=== PATIENT | female | born 1935 | race Caucasian/White ===

== ENCOUNTER → 2016-06-19 | Outpatient (CLI) | payer BC ==
[2016-06-19 08:29] LABS: APPEARANCE,URINE CLEAR; BILIRUBIN,URINE NEGATIVE (NEGATIVE); GLUCOSE, URINE NEGATIVE (NEGATIVE); KETONES,URINE NEGATIVE (NEGATIVE); LEUKOCYTE ESTERASE,URINE NEGATIVE (NEGATIVE); NITRITE,URINE NEGATIVE (NEGATIVE); PROTEIN,URINE NEGATIVE (NEGATIVE); URINE SPECIFIC GRAVITY 1.016; UROBILINOGEN,URINE NEGATIVE mg/dL (<2.0)
[2016-06-19 08:53] LABS: ANION GAP 13 (5-19); BLOOD UREA NITROGEN 23 mg/dL (7-20); CALCIUM 9.6 mg/dL (8.4-10.2); CARBON DIOXIDE 27 mmol/L (22-30); CHLORIDE 102 mmol/L (98-107); Direct HDL 57 mg/dL (>40); GLUCOSE 102 mg/dL (75-110); POTASSIUM 4.7 mmol/L (3.6-5.0); SODIUM 141.6 mmol/L (137-145); TRIGLYCERIDES 115 mg/dL (<150)
[2016-06-19 09:04] LABS: DIRECT LDL 34 mg/dL (<100)
[2016-06-20 11:39] LABS: CREATININE URINE 155.8 mg/dL (Not Estab.); MICROALBUMIN URINE 18.3 ug/mL (Not Estab.)
== END ==
LOC: OD 07:25
PROVIDERS: ATTEND Internal Medicine Nephrology
DX: N18.3 Chronic kidney disease, stage 3 (moderate) (principal); E78.2 Mixed hyperlipidemia
CPT/HCPCS: 36415; 80048; 80061; 81001; 82043; 82570

== ENCOUNTER → 2016-11-18 | Outpatient (CLI) | payer BC ==
[2016-11-18 08:42] LABS: ABSOLUTE BASOPHILS # (AUTO) 0.1 10^3/uL (0.0-0.2); ABSOLUTE EOSINOPHILS # (AUTO) 0.2 10^3/uL (0.0-0.6); ABSOLUTE MONOCYTES (AUTO) 0.4 10^3/uL (0.1-1.4); ABSOLUTE NEUT (AUTO) 3.4 10^3/uL (1.7-8.2); BASOPHILS % (AUTO) 1.1 % (0-2); EOSINOPHILS % (AUTO) 4.4 % (0-6); HEMATOCRIT 33.8 % (36.0-47.0); HEMOGLOBIN 11.3 g/dL (12.0-15.5); HGB HCT DIFFERENCE 0.1; LYMPHOCYTES % (AUTO) 20.4 % (13-45); MEAN CORPUSCULAR HEMOGLOBIN 31.3 pg (27.0-33.4); MEAN CORPUSCULAR HGB CONC 33.4 g/dL (32.0-36.0); MEAN CORPUSCULAR VOLUME 94 fl (80-97); MONOCYTES % (AUTO) 7.5 % (3-13); RED BLOOD COUNT 3.61 10^6/uL (3.72-5.28); RED CELL DISTRIBUTION WIDTH 13.5 % (11.5-14.0); SEGMENTED NEUTROPHILS % (AUTO) 66.6 % (42-78); WHITE BLOOD COUNT 5.1 10^3/uL (4.0-10.5)
[2016-11-18 09:14] LABS: ALBUMIN 4.4 g/dL (3.5-5.0); ANION GAP 11 (5-19); BLOOD UREA NITROGEN 27 mg/dL (7-20); CALCIUM 10.1 mg/dL (8.4-10.2); CARBON DIOXIDE 30 mmol/L (22-30); CHLORIDE 103 mmol/L (98-107); CREATININE RESULT 1.31 mg/dL (0.52-1.25); GLUCOSE 105 mg/dL (75-110); PHOSPHORUS 3.9 mg/dL (2.5-4.5); POTASSIUM 4.8 mmol/L (3.6-5.0); URIC ACID 6.4 mg/dL (2.5-7.5)
[2016-11-18 09:38] LABS: THYROID STIMULATING HORMONE 1.85 uIU/mL (0.47-4.68)
[2016-11-19 07:06] LABS: VITAMIN D 25-HYDROXY 60.4 ng/mL (30.0-100.0)
== END ==
LOC: OD 07:25
PROVIDERS: ATTEND Internal Medicine Nephrology
DX: N18.3 Chronic kidney disease, stage 3 (moderate) (principal); D64.9 Anemia, unspecified; M10.9 Gout, unspecified; E03.9 Hypothyroidism, unspecified; E55.9 Vitamin D deficiency, unspecified
CPT/HCPCS: 36415; 80048; 82040; 82306; 83970; 84100; 84439; 84443; 84550; 85025

== ENCOUNTER → 2017-05-21 | Outpatient (CLI) | payer BC ==
[2017-05-21 08:15] LABS: ABSOLUTE BASOPHILS # (AUTO) 0.1 10^3/uL (0.0-0.2); ABSOLUTE EOSINOPHILS # (AUTO) 0.5 10^3/uL (0.0-0.6); ABSOLUTE LYMPHOCYTES (AUTO) 1.2 10^3/uL (0.5-4.7); ABSOLUTE MONOCYTES (AUTO) 0.4 10^3/uL (0.1-1.4); ABSOLUTE NEUT (AUTO) 3.3 10^3/uL (1.7-8.2); BASOPHILS % (AUTO) 1.2 % (0-2); EOSINOPHILS % (AUTO) 9.5 % (0-6); HEMATOCRIT 34.8 % (36.0-47.0); HEMOGLOBIN 11.7 g/dL (12.0-15.5); LYMPHOCYTES % (AUTO) 21.6 % (13-45); MEAN CORPUSCULAR HEMOGLOBIN 30.9 pg (27.0-33.4); MEAN CORPUSCULAR HGB CONC 33.6 g/dL (32.0-36.0); MEAN CORPUSCULAR VOLUME 92 fl (80-97); MONOCYTES % (AUTO) 7.9 % (3-13); PLATELET COUNT 225 10^3/uL (150-450); RED BLOOD COUNT 3.78 10^6/uL (3.72-5.28); RED CELL DISTRIBUTION WIDTH 14.1 % (11.5-14.0); SEGMENTED NEUTROPHILS % (AUTO) 59.8 % (42-78); TOTAL CELLS COUNTED % (AUTO) 100 %; WHITE BLOOD COUNT 5.6 10^3/uL (4.0-10.5)
[2017-05-21 08:25] LABS: APPEARANCE,URINE SLIGHTLY-CLOUDY; BILIRUBIN,URINE NEGATIVE (NEGATIVE); COLOR,URINE YELLOW; GLUCOSE, URINE NEGATIVE (NEGATIVE); KETONES,URINE NEGATIVE (NEGATIVE); LEUKOCYTE ESTERASE,URINE NEGATIVE (NEGATIVE); NITRITE,URINE NEGATIVE (NEGATIVE); PROTEIN,URINE NEGATIVE (NEGATIVE); URINE SPECIFIC GRAVITY 1.015; UROBILINOGEN,URINE NEGATIVE mg/dL (<2.0)
[2017-05-21 08:32] LABS: ALANINE AMINOTRANSFERASE 24 U/L (9-52); ALBUMIN 4.6 g/dL (3.5-5.0); ALKALINE PHOSPHATASE 41 U/L (38-126); ANION GAP 15 (5-19); ASPARTATE AMINO TRANSFERASE 23 U/L (14-36); BILIRUBIN,DIRECT 0.2 mg/dL (0.0-0.4); BILIRUBIN,TOTAL 0.6 mg/dL (0.2-1.3); BLOOD UREA NITROGEN 29 mg/dL (7-20); CALCIUM 10.4 mg/dL (8.4-10.2); CARBON DIOXIDE 26 mmol/L (22-30); CHLORIDE 102 mmol/L (98-107); CHOLESTEROL 160.82 mg/dL (0-200); GLUCOSE 98 mg/dL (75-110); SODIUM 142.5 mmol/L (137-145); TOTAL PROTEIN 6.9 g/dL (6.3-8.2); TRIGLYCERIDES 143 mg/dL (<150)
[2017-05-21 08:43] LABS: DIRECT LDL 39 mg/dL (<100)
[2017-05-21 10:13] LABS: FREE T4 (FREE THYROXINE) 1.2 ng/dL (0.78-2.19)
[2017-05-21 10:27] LABS: THYROID STIMULATING HORMONE 1.93 uIU/mL (0.47-4.68)
[2017-05-22 12:38] LABS: CREATININE URINE 126.2 mg/dL (Not Estab.); MICROALBUMIN URINE 6.9 ug/mL (Not Estab.)
== END ==
LOC: OD 07:17
PROVIDERS: ATTEND Internal Medicine Nephrology
DX: N18.3 Chronic kidney disease, stage 3 (moderate) (principal); E03.9 Hypothyroidism, unspecified; E78.1 Pure hyperglyceridemia
CPT/HCPCS: 36415; 80053; 80061; 81001; 82043; 82570; 84439; 84443; 85025

== ENCOUNTER → 2017-06-16 | Outpatient (CLI) | payer BC ==
[2017-06-16 08:57] LABS: ANION GAP 10 (5-19); BLOOD UREA NITROGEN 44 mg/dL (7-20); CARBON DIOXIDE 27 mmol/L (22-30); CHLORIDE 103 mmol/L (98-107); GLUCOSE 106 mg/dL (75-110); POTASSIUM 5.7 mmol/L (3.6-5.0); SODIUM 139.8 mmol/L (137-145)
== END ==
LOC: OD 07:20
PROVIDERS: ATTEND Internal Medicine Nephrology
DX: N17.9 Acute kidney failure, unspecified (principal)
CPT/HCPCS: 36415; 80048

== ENCOUNTER → 2017-06-19 | Outpatient (CLI) | payer BC, MEDICARE ==
--- NOTE | 2017-06-19 09:22 | WOMENS IMAGING REPORT ---
EXAM DESCRIPTION: RETROPERITONEAL U/S COMPLETED DATE/TIME: 06/19/2017 7:43 am REASON FOR STUDY: ACUTE KIDNEY FAILURE N17.9 ACUTE KIDNEY FAILURE, UNSPECIFIED COMPARISON: None. TECHNIQUE: Dynamic and static grayscale images acquired of the kidneys and bladder and recorded on P ACS. Additional selected color Doppler and spectral images recorded. LIMITATIONS: None. FINDINGS: RIGHT KIDNEY: 9 cm in length, with mild diffuse cortical thinning and increased echogenic ity. No solid or suspicious masses. 2.2 cm right lower pole parapelvic cyst. No hydronephrosis. No calcifications. LEFT KIDNEY: 9.6 cm in length, with mild diffuse cortical thinning and increased echogenicity. No solid or suspicious masses. No hydronephrosis. No calcifications. BLADDER: No masses. Bilateral ureteral jets are identified OTHER FINDINGS: No other significant finding. IMPRESSION: No hydronephrosis. Bilateral renal cortical thinning and mild increased echogenicity from medical renal disease TECHNICAL DOCUMENTATION: JOB ID: [id number] [employer]- All Rights Reserved Reading location - IP/workstation name: [email or web address]
== END ==
LOC: WI 07:10
PROVIDERS: ATTEND Internal Medicine Nephrology
DX: N17.9 Acute kidney failure, unspecified (principal); E87.5 Hyperkalemia
CPT/HCPCS: 76770

== ENCOUNTER → 2017-06-20 | Outpatient (CLI) | payer BC, MEDICARE ==
[2017-06-20 14:22] LABS: ANION GAP 13 (5-19); BLOOD UREA NITROGEN 37 mg/dL (7-20); CALCIUM 10.3 mg/dL (8.4-10.2); CARBON DIOXIDE 29 mmol/L (22-30); CHLORIDE 100 mmol/L (98-107); GLUCOSE 109 mg/dL (75-110); POTASSIUM 4.4 mmol/L (3.6-5.0)
== END ==
LOC: OD 13:18
PROVIDERS: ATTEND Internal Medicine Nephrology
DX: N17.9 Acute kidney failure, unspecified (principal); E87.5 Hyperkalemia
CPT/HCPCS: 36415; 80048

== ENCOUNTER → 2017-07-14 | Outpatient (CLI) | payer BC, MEDICARE ==
[2017-07-14 08:33] LABS: ANION GAP 13 (5-19); BLOOD UREA NITROGEN 24 mg/dL (7-20); CALCIUM 9.7 mg/dL (8.4-10.2); CARBON DIOXIDE 26 mmol/L (22-30); CHLORIDE 104 mmol/L (98-107); GLUCOSE 100 mg/dL (75-110); SODIUM 142.8 mmol/L (137-145)
== END ==
LOC: OD 07:31
PROVIDERS: ATTEND Internal Medicine Nephrology
DX: N17.9 Acute kidney failure, unspecified (principal); E87.5 Hyperkalemia
CPT/HCPCS: 36415; 80048

== ENCOUNTER → 2017-09-11 | Outpatient (CLI) | payer BC, MEDICARE ==
[2017-09-11 07:53] LABS: ABSOLUTE EOSINOPHILS # (AUTO) 0.1 10^3/uL (0.0-0.6); ABSOLUTE LYMPHOCYTES (AUTO) 0.4 10^3/uL (0.5-4.7); ABSOLUTE MONOCYTES (AUTO) 0.3 10^3/uL (0.1-1.4); ABSOLUTE NEUT (AUTO) 2.2 10^3/uL (1.7-8.2); BASOPHILS % (AUTO) 1.5 % (0-2); EOSINOPHILS % (AUTO) 2.4 % (0-6); HEMATOCRIT 29.7 % (36.0-47.0); HEMOGLOBIN 10.1 g/dL (12.0-15.5); LYMPHOCYTES % (AUTO) 12.6 % (13-45); MEAN CORPUSCULAR HGB CONC 34.1 g/dL (32.0-36.0); MEAN CORPUSCULAR VOLUME 91 fl (80-97); MONOCYTES % (AUTO) 10.8 % (3-13); PLATELET COUNT 196 10^3/uL (150-450); RED BLOOD COUNT 3.27 10^6/uL (3.72-5.28); RED CELL DISTRIBUTION WIDTH 13.8 % (11.5-14.0); SEGMENTED NEUTROPHILS % (AUTO) 72.7 % (42-78); TOTAL CELLS COUNTED % (AUTO) 100 %
[2017-09-11 08:20] LABS: ANION GAP 11 (5-19); BLOOD UREA NITROGEN 29 mg/dL (7-20); CALCIUM 9.6 mg/dL (8.4-10.2); CARBON DIOXIDE 27 mmol/L (22-30); CHLORIDE 100 mmol/L (98-107); GLUCOSE 102 mg/dL (75-110); PHOSPHORUS 3.7 mg/dL (2.5-4.5); POTASSIUM 4.3 mmol/L (3.6-5.0); SODIUM 138.1 mmol/L (137-145)
[2017-09-11 08:54] LABS: APPEARANCE,URINE SLIGHTLY-CLOUDY; BILIRUBIN,URINE NEGATIVE (NEGATIVE); COLOR,URINE YELLOW; GLUCOSE, URINE NEGATIVE (NEGATIVE); KETONES,URINE NEGATIVE (NEGATIVE); LEUKOCYTE ESTERASE,URINE NEGATIVE (NEGATIVE); NITRITE,URINE NEGATIVE (NEGATIVE); PROTEIN,URINE NEGATIVE (NEGATIVE); UROBILINOGEN,URINE NEGATIVE mg/dL (<2.0)
[2017-09-12 09:39] LABS: CREATININE URINE 200.7 mg/dL (Not Estab.); MICROALBUMIN URINE 44.3 ug/mL (Not Estab.)
== END ==
LOC: OD 07:14
PROVIDERS: ATTEND Internal Medicine Nephrology
DX: N17.9 Acute kidney failure, unspecified (principal); I12.9 Hypertensive chronic kidney disease with stage 1 through stage 4 chronic kidney disease, or unspecified chronic kidney disease; N18.3 Chronic kidney disease, stage 3 (moderate); N28.89 Other specified disorders of kidney and ureter
CPT/HCPCS: 36415; 80048; 81001; 82040; 82043; 82088; 82306; 82533; 82570; 83835; 83970; 84100; 84244; 85025

== ENCOUNTER 2017-11-13 00:44 | Emergency (ER) | payer BC, MEDICARE ==
[2017-11-13 01:11] VITALS: BP 173/63
--- NOTE | 2017-11-13 01:55 | ER Document Report ---
ED GI/ - General Chief Complaint: Abdominal Pain >50 Stated Complaint: LOWER ABDOMINAL PAIN/DIARRHEA Time Seen by Provider: 11/13/17 01:34 TRAVEL OUTSIDE OF THE [place] IN LAST 30 DAYS: No - HPI Patient complains to provider of: Other - 82-year-old female with past medical history significant for renal insufficiency as well as hypertension that presents for evaluation of abdominal pain which began today. She notes that the pain is primarily in the right lower quadrant has been associated with loose bowel movements as well. She does endorse some nausea but denies any emesis, denies any fevers or chills, denies any dysuria. Her daughter notes that she did have an episode like this approximately 1 week prior without any obvious identified causes. She denies any significant past surgical history in the past. - Related Data Allergies/Adverse Reactions: No Known Allergies Allergy (Verified 11/17/17 13:53) Past Medical History - General Information source: Patient, Relative - Social History Smoking Status: Unknown if Ever Smoked Family History: None - Past Medical History Cardiac Medical History: Reports: Hx Hypertension - ON MEDS TOPROL Denies: Hx Coronary Artery Disease, Hx Heart Attack Pulmonary Medical History: Reports: Hx Pneumonia - Hx of, 1984 Denies: Hx Asthma, Hx Bronchitis, Hx COPD Neurological Medical History: Denies: Hx Cerebrovascular Accident, Hx Seizures GI Medical History: Denies: Hx Hepatitis, Hx Hiatal Hernia, Hx Ulcer Musculoskeletal Medical History: Reports Hx Arthritis - hips Infectious Medical History: Denies: Hx Hepatitis Past Surgical History: Denies: Hx Mastectomy, Hx Open Heart Surgery, Hx Pacemaker Review of Systems - Review of Systems -: Yes All other systems reviewed and negative Physical Exam - Vital signs Vitals: Temp Pulse Resp BP Pulse Ox 98.4 F 80 16 173/63 H 100 11/13/17 01:09 11/13/17 01:09 11/13/17 01:09 11/13/17 01:09 11/13/17 01:09 - General General appearance: Appears well In distress: None - HEENT Head: Normocephalic Eyes: Normal Conjunctiva: Normal Cornea: Normal Extraocular movements intact: Yes Eyelashes: Normal Pupils: PERRL - Respiratory Respiratory status: No respiratory distress Chest status: Nontender Breath sounds: Normal Chest palpation: Normal - Cardiovascular Rhythm: Regular Heart sounds: Normal auscultation Murmur: No - Abdominal Inspection: Normal Distension: No distension Tenderness: Tender - Tenderness in the right lower quadrant without any appreciable guarding or rebound Organomegaly: No organomegaly - Back Back: Normal - Extremities General upper extremity: Normal inspection, Nontender, Normal ROM, Normal strength General lower extremity: Normal inspection, Nontender, Normal ROM, Normal strength - Neurological Neuro grossly intact: Yes Cognition: Normal Orientation: AAOx4 Hina Coma Scale Eye Opening: Spontaneous Hudson Coma Scale Verbal: Oriented Hudson Coma Scale Motor: Obeys Commands Hudson Coma Scale Total: 15 Speech: Normal Cranial nerves: Normal Cerebellar coordination: Normal Motor strength normal: LUE, RUE, LLE, RLE - Psychological Associated symptoms: Normal affect Course - Re-evaluation Re-evalutation: 11/13/17 02:47 82-year-old female presents for evaluation of abdominal pain she developed today in the setting of also having diarrhea. She is got no significant past surgical history. On examination she looks in no obvious distress. Her abdominal examination is concerning for tenderness in the right lower quadrant. Given the concern for this patient developing a potential appendicitis colitis or other underlying more sinister abdominal pathology will plan for CT of the abdomen and pelvis. Her creatinine is elevated and her GFR is less than 30 therefore we will proceed with p.o. contrast no IV contrast. We will initiate fluids, patient does not demonstrate an obvious leukocytosis or an elevated lipase. She deferred any antinausea medication or pain medication at this time. We will reassess. CT the abdomen and pelvis did not demonstrate any obvious obstruction, abscess, or perforation. Given that she is now able tolerate p.o. and she continues to have a benign abdominal examination will defer admission at this time, patient has been able to tolerate p.o. at this time, she is overall well-appearing did have several bowel movements on the emergency department. She is not demonstrate any obvious signs of distress. This may represent a result of the clindamycin which she began taking 3 days prior, could represent some other problem related to change in diet which she has had recently. We will defer antibiotic administration at this time will give medication for both pain and nausea. Patient be discharged home in the care of her daughter with strict return precautions. They are in agreement with this current plan at this time, her C. difficile assay is negative. At the time of discharge the patient was ambulatory without assistance, able tolerate p.o. and continue to have benign abdominal examination. - Vital Signs Vital signs: Temp Pulse Resp BP Pulse Ox 98.4 F 80 16 173/63 H 100 11/13/17 01:09 11/13/17 01:09 11/13/17 01:09 11/13/17 01:11/13/17 01:09 - Laboratory Result Diagrams: 11/13/17 02:10 11/13/17 02:10 Laboratory results interpreted by me: 11/13/17 11/13/17 02:10 02:10 RBC 3.24 L Hgb 10.0 L Hct 29.1 L Seg Neutrophils % 83.9 H Lymphocytes % 5.7 L Absolute Lymphocytes 0.3 L Sodium 134.0 L BUN 24 H Creatinine 1.77 H Est GFR ( Amer) 33 L Est GFR (Non-Af Amer) 28 L Direct Bilirubin 0.5 H Discharge - Discharge Clinical Impression: Nausea & vomiting Qualifiers: Vomiting type: unspecified Vomiting Intractability: non-intractable Qualified Code(s): R11.2 - Nausea with vomiting, unspecified Diarrhea Qualifiers: Diarrhea type: unspecified type Qualified Code(s): R19.7 - Diarrhea, unspecified Condition: Good Disposition: HOME, SELF-CARE Referrals: ELENA SILVA MD [Primary Care Provider] - Follow up as needed
[2017-11-13 02:34] LABS: ALANINE AMINOTRANSFERASE 23 U/L (9-52); ALBUMIN 3.9 g/dL (3.5-5.0); ALKALINE PHOSPHATASE 41 U/L (38-126); ANION GAP 11 (5-19); ASPARTATE AMINO TRANSFERASE 22 U/L (14-36); BILIRUBIN,DIRECT 0.5 mg/dL (0.0-0.4); BILIRUBIN,TOTAL 0.8 mg/dL (0.2-1.3); BLOOD UREA NITROGEN 24 mg/dL (7-20); CALCIUM 9.3 mg/dL (8.4-10.2); CARBON DIOXIDE 23 mmol/L (22-30); CHLORIDE 100 mmol/L (98-107); GLUCOSE 100 mg/dL (75-110); LIPASE 56.2 U/L (23-300); POTASSIUM 4.1 mmol/L (3.6-5.0); TOTAL PROTEIN 6.3 g/dL (6.3-8.2)
[2017-11-13 02:35] LABS: ABSOLUTE LYMPHOCYTES (AUTO) 0.3 10^3/uL (0.5-4.7); ABSOLUTE MONOCYTES (AUTO) 0.5 10^3/uL (0.1-1.4); ABSOLUTE NEUT (AUTO) 4.4 10^3/uL (1.7-8.2); BASOPHILS % (AUTO) 0.5 % (0-2); EOSINOPHILS % (AUTO) 0.8 % (0-6); HEMATOCRIT 29.1 % (36.0-47.0); LYMPHOCYTES % (AUTO) 5.7 % (13-45); MEAN CORPUSCULAR HEMOGLOBIN 30.9 pg (27.0-33.4); MEAN CORPUSCULAR HGB CONC 34.3 g/dL (32.0-36.0); MEAN CORPUSCULAR VOLUME 90 fl (80-97); MONOCYTES % (AUTO) 9.1 % (3-13); PLATELET COUNT 193 10^3/uL (150-450); RED BLOOD COUNT 3.24 10^6/uL (3.72-5.28); RED CELL DISTRIBUTION WIDTH 13.4 % (11.5-14.0); SEGMENTED NEUTROPHILS % (AUTO) 83.9 % (42-78); TOTAL CELLS COUNTED % (AUTO) 100 %; WHITE BLOOD COUNT 5.2 10^3/uL (4.0-10.5)
[2017-11-13] MEDS ORDERED: NORMAL SALINE 1000 ML 1,000 ML IV ONE (02:42)
[2017-11-13 03:06] LABS: APPEARANCE,URINE CLEAR; BILIRUBIN,URINE NEGATIVE (NEGATIVE); COLOR,URINE YELLOW; GLUCOSE, URINE NEGATIVE (NEGATIVE); KETONES,URINE NEGATIVE (NEGATIVE); LEUKOCYTE ESTERASE,URINE NEGATIVE (NEGATIVE); NITRITE,URINE NEGATIVE (NEGATIVE); PROTEIN,URINE NEGATIVE (NEGATIVE); URINE SPECIFIC GRAVITY 1.009; UROBILINOGEN,URINE NEGATIVE mg/dL (<2.0)
--- NOTE | 2017-11-13 08:26 | EKG REPORT ---
SEVERITY:- BORDERLINE ECG - SINUS RHYTHM PROBABLE LEFT ATRIAL ABNORMALITY NONSPECIFIC ST-T CHANGES ANTERIOR LEADS : Confirmed by: George Heller MD 13-Nov-2017 07:35:29
--- NOTE | 2017-11-13 08:27 | RADIOLOGY REPORT (SQ) ---
EXAM DESCRIPTION: CT ABDOMEN PELVIS WITHOUT IV CONTRAST COMPLETED DATE/TME: 11/13/2017 02:44 CLINICAL HISTORY: Right lower abdominal pain. COMPARISON: None Available. TECHNIQUE: CT of the abdomen and pelvis without IV contrast. Evaluation of the solid organs and vasculature is suboptimal due to lack of IV contrast. Oral contrast administered. DLP: 290.46 mGy-cm FINDINGS: Lung Bases: The visualized lung bases are clear. Bones: Degenerative change of the spine. Abdomen: Liver: The liver has normal size and density. Gallbladder: No calcified gallstones. Spleen, Pancreas, and Adrenal Glands: Splenomegaly. The pancreas and adrenal glands demonstrate no definite abnormality. Kidneys: No hydronephrosis or obstructing calculus identified. Possible calcification and irregular contour of the interpolar right kidney measuring 1.6 x 2.3 cm. Vasculature: Aortoiliac atherosclerosis. IVC is unremarkable. Stomach: The stomach and duodenum have normal course. Other: No free intraperitoneal air. Small amount of free fluid. Pelvis: Bladder: Urinary bladder is unremarkable. Bowel: No dilated loops of large or small bowel. Significant wall thickening and adjacent inflammatory change of the ascending and proximal transverse colon. Greatest wall thickness measures 1.8 cm. Appendix: The appendix is not identified. Pelvis: Prior hysterectomy. IMPRESSION: 1. Diffuse wall thickening and inflammatory change of the ascending and proximal transverse colon. These findings are most suggestive of colitis of infectious or inflammatory etiology. GI follow-up after treatment of acute illness to exclude other causes of colonic wall thickening. 2. Ill-defined nodularity and calcification involving the interpolar right kidney measuring 2.3 cm in greatest dimension. This is incompletely characterized due to lack of IV contrast. Correlation with contrast-enhanced CT or MRI of the abdomen recommended for further characterization. 3. Splenomegaly. This exam was performed according to our departmental dose-optimization program, which includes automated exposure control, adjustment of the mA and/or kV according to patient size and/or use of iterative reconstruction technique.
== END 2017-11-13 06:00 | disposition home or self-care (01) ==
LOC: ER 00:44
DX: R19.7 Diarrhea, unspecified (principal); R11.2 Nausea with vomiting, unspecified; R10.31 Right lower quadrant pain; I10 Essential (primary) hypertension
CPT/HCPCS: 93005; 99284; 96360; 96361; 36415; 83690; 85025; 80053; 81001; 74176; 93010; J7030

== ENCOUNTER 2017-12-15 08:58 | Day surgery (SDC) | payer BC ==
[~2017-12-15 08:58] MED LIST: PROPOFOL INJ 200 MG/20 ML VIAL IV ONE
[2017-12-15 10:41] VITALS: BP 111/46
--- NOTE | 2017-12-15 12:05 | Operative Report ---
Operative Report DATE OF SURGERY: 12/15/17 Operative Report: The risks, benefits and alternatives of the procedure including the risks of bleeding, perforation requiring surgery are explained to the patient in detail and informed consent is obtained. The patient is brought back to the endoscopy suite and placed in the left, lateral decubital position. Timeout was called. Propofol medication is administered. A rectal examination is done which did not reveal any masses, tears or fissures. An Olympus videoscope was inserted into the patient's rectum. The scope was then carefully advanced all the way to the cecum. The cecum was identified by the usual anatomical landmarks including the ileocecal valve as well as the appendiceal office. Photodocumentation is obtained. The scope was then sequentially pulled back via the various segments of the colon including the ascending colon, hepatic flexure, transverse colon, splenic flexure, descending colon and finally into the rectosigmoid portions of the colon. Retroflexion maneuver is performed. PREOPERATIVE DIAGNOSIS: Abnormal CT scan showing thickening on the right side of the colon POSTOPERATIVE DIAGNOSIS: Colonic ulcer status post biopsy rule out ischemic colitis. Internal hemorrhoids. Diverticulosis OPERATION: Colonoscopy with biopsy SURGEON: YVROSE LIRA ANESTHESIA: LMAC TISSUE REMOVED OR ALTERED: As noted above. COMPLICATIONS: None. ESTIMATED BLOOD LOSS: None. INTRAOPERATIVE FINDINGS: As noted above. PROCEDURE: Patient tolerated the procedure well. No immediate postprocedure complications are noted. Patient discharged in good condition. Discharge date 12/15/2017. Discharge diet: Regular. Discharge activity: Regular. 2-3-week follow-up to discuss findings. We will went up pathology. Patient is instructed call the office or proceed to the emergency room should there be any further problems or questions.
== END 2017-12-15 10:40 | disposition home or self-care (01) ==
LOC: END 08:58
PROVIDERS: ATTEND Internal Medicine Gastroenterology
DX: K55.1 Chronic vascular disorders of intestine (principal); K57.30 Diverticulosis of large intestine without perforation or abscess without bleeding; K64.8 Other hemorrhoids; R63.4 Abnormal weight loss; Z80.0 Family history of malignant neoplasm of digestive organs; E78.5 Hyperlipidemia, unspecified; M19.90 Unspecified osteoarthritis, unspecified site; E03.9 Hypothyroidism, unspecified; I12.9 Hypertensive chronic kidney disease with stage 1 through stage 4 chronic kidney disease, or unspecified chronic kidney disease; N18.4 Chronic kidney disease, stage 4 (severe); D63.1 Anemia in chronic kidney disease; H81.09 Meniere's disease, unspecified ear; E55.9 Vitamin D deficiency, unspecified; M10.9 Gout, unspecified; E78.1 Pure hyperglyceridemia; Z79.899 Other long term (current) drug therapy; Z68.22 Body mass index [BMI] 22.0-22.9, adult; Z90.5 Acquired absence of kidney
CPT/HCPCS: 45380; 88305 ×2; J2704; 811

== ENCOUNTER → 2017-12-23 | Outpatient (CLI) | payer BC ==
[2017-12-23 07:43] LABS: ABSOLUTE LYMPHOCYTES (AUTO) 0.3 10^3/uL (0.5-4.7); ABSOLUTE MONOCYTES (AUTO) 0.3 10^3/uL (0.1-1.4); ABSOLUTE NEUT (AUTO) 2.4 10^3/uL (1.7-8.2); BASOPHILS % (AUTO) 0.8 % (0-2); EOSINOPHILS % (AUTO) 1.3 % (0-6); HEMATOCRIT 23.9 % (36.0-47.0); HEMOGLOBIN 8.2 g/dL (12.0-15.5); LYMPHOCYTES % (AUTO) 9.1 % (13-45); MEAN CORPUSCULAR HEMOGLOBIN 30.3 pg (27.0-33.4); MEAN CORPUSCULAR HGB CONC 34.3 g/dL (32.0-36.0); MEAN CORPUSCULAR VOLUME 88 fl (80-97); MONOCYTES % (AUTO) 9.2 % (3-13); PLATELET COUNT 181 10^3/uL (150-450); RED BLOOD COUNT 2.71 10^6/uL (3.72-5.28); RED CELL DISTRIBUTION WIDTH 15.2 % (11.5-14.0); SEGMENTED NEUTROPHILS % (AUTO) 79.6 % (42-78); TOTAL CELLS COUNTED % (AUTO) 100 %
[2017-12-23 08:00] LABS: APPEARANCE,URINE SLIGHTLY-CLOUDY; BILIRUBIN,URINE NEGATIVE (NEGATIVE); COLOR,URINE YELLOW; GLUCOSE, URINE NEGATIVE (NEGATIVE); KETONES,URINE NEGATIVE (NEGATIVE); LEUKOCYTE ESTERASE,URINE NEGATIVE (NEGATIVE); NITRITE,URINE NEGATIVE (NEGATIVE); PROTEIN,URINE NEGATIVE (NEGATIVE); URINE SPECIFIC GRAVITY 1.018; UROBILINOGEN,URINE NEGATIVE mg/dL (<2.0)
[2017-12-23 08:01] LABS: ALBUMIN 3.3 g/dL (3.5-5.0); ANION GAP 10 (5-19); BLOOD UREA NITROGEN 27 mg/dL (7-20); CALCIUM 9.2 mg/dL (8.4-10.2); CARBON DIOXIDE 24 mmol/L (22-30); CHLORIDE 100 mmol/L (98-107); CHOLESTEROL 109.24 mg/dL (0-200); GLUCOSE 106 mg/dL (75-110); PHOSPHORUS 3.3 mg/dL (2.5-4.5); POTASSIUM 4.3 mmol/L (3.6-5.0); SODIUM 133.7 mmol/L (137-145); TRIGLYCERIDES 135 mg/dL (<150)
[2017-12-23 08:17] LABS: DIRECT LDL < 30 mg/dL (<100)
[2017-12-24 12:38] LABS: CREATININE URINE 152.6 mg/dL (Not Estab.); MICROALBUMIN URINE 18.8 ug/mL (Not Estab.)
== END ==
LOC: OD 07:05
PROVIDERS: ATTEND Internal Medicine Nephrology
DX: I12.9 Hypertensive chronic kidney disease with stage 1 through stage 4 chronic kidney disease, or unspecified chronic kidney disease (principal); N18.4 Chronic kidney disease, stage 4 (severe); D63.1 Anemia in chronic kidney disease
CPT/HCPCS: 36415; 80048; 80061; 81001; 82040; 82043; 82306; 82570; 83970; 84100; 85025

== ENCOUNTER → 2018-01-12 | Outpatient (CLI) | payer BC ==
[2018-01-12 08:24] LABS: ABSOLUTE EOSINOPHILS # (AUTO) 0.1 10^3/uL (0.0-0.6); ABSOLUTE LYMPHOCYTES (AUTO) 0.3 10^3/uL (0.5-4.7); ABSOLUTE MONOCYTES (AUTO) 0.3 10^3/uL (0.1-1.4); ABSOLUTE NEUT (AUTO) 3.7 10^3/uL (1.7-8.2); BASOPHILS % (AUTO) 1.1 % (0-2); EOSINOPHILS % (AUTO) 1.9 % (0-6); HEMATOCRIT 26.6 % (36.0-47.0); HEMOGLOBIN 9.2 g/dL (12.0-15.5); LYMPHOCYTES % (AUTO) 6.6 % (13-45); MEAN CORPUSCULAR HEMOGLOBIN 30.7 pg (27.0-33.4); MEAN CORPUSCULAR HGB CONC 34.4 g/dL (32.0-36.0); MEAN CORPUSCULAR VOLUME 89 fl (80-97); MONOCYTES % (AUTO) 6.8 % (3-13); PLATELET COUNT 218 10^3/uL (150-450); RED BLOOD COUNT 2.98 10^6/uL (3.72-5.28); RED CELL DISTRIBUTION WIDTH 15.6 % (11.5-14.0); SEGMENTED NEUTROPHILS % (AUTO) 83.6 % (42-78); TOTAL CELLS COUNTED % (AUTO) 100 %; WHITE BLOOD COUNT 4.4 10^3/uL (4.0-10.5)
[2018-01-12 08:42] LABS: ANION GAP 13 (5-19); BLOOD UREA NITROGEN 28 mg/dL (7-20); CALCIUM 9.2 mg/dL (8.4-10.2); CARBON DIOXIDE 28 mmol/L (22-30); CHLORIDE 95 mmol/L (98-107); GLUCOSE 109 mg/dL (75-110); IRON(TIBC) 55.1 ug/dL (37-170); POTASSIUM 3.8 mmol/L (3.6-5.0); SODIUM 136.4 mmol/L (137-145)
== END ==
LOC: OD 07:24
PROVIDERS: ATTEND Internal Medicine Nephrology
DX: N18.3 Chronic kidney disease, stage 3 (moderate) (principal); D63.1 Anemia in chronic kidney disease
CPT/HCPCS: 36415; 80048; 82728; 83540; 83550; 85025

== ENCOUNTER 2018-02-05 07:48 | Outpatient (CLI) | payer BC ==
[~2018-02-05 07:48] MED LIST changes: +FERRIC CARBOXYMALTOSE 750 MG in NORMAL SALINE 250 ML IV PRN; -PROPOFOL INJ 200 MG/20 ML VIAL IV ONE
[2018-02-05 09:46] VITALS: BP 117/40
== END 2018-02-05 09:46 | disposition home or self-care (01) ==
LOC: II 07:48 → 5TH 07:53 → II 09:46
PROVIDERS: ATTEND Internal Medicine Nephrology
PROC: 3E033GC Introduction of Other Therapeutic Substance into Peripheral Vein, Percutaneous Approach (ICD-10-PCS; principal; 2018-02-05)
DX: D50.8 Other iron deficiency anemias (principal)
CPT/HCPCS: 96365; J7050; J1439

== ENCOUNTER 2018-02-12 07:46 | Outpatient (CLI) | payer BC ==
[2018-02-12 09:02] VITALS: BP 118/48
== END 2018-02-12 09:02 | disposition home or self-care (01) ==
LOC: II 07:46
PROVIDERS: ATTEND Internal Medicine Nephrology
PROC: 3E033GC Introduction of Other Therapeutic Substance into Peripheral Vein, Percutaneous Approach (ICD-10-PCS; principal; 2018-02-12)
DX: D50.8 Other iron deficiency anemias (principal)
CPT/HCPCS: 96365; J7050; J1439

== ENCOUNTER → 2018-02-17 | Outpatient (CLI) | payer BC ==
[2018-02-17 08:07] LABS: ABSOLUTE BASOPHILS # (AUTO) 0.1 10^3/uL (0.0-0.2); ABSOLUTE EOSINOPHILS # (AUTO) 0.2 10^3/uL (0.0-0.6); ABSOLUTE LYMPHOCYTES (AUTO) 0.4 10^3/uL (0.5-4.7); ABSOLUTE MONOCYTES (AUTO) 0.4 10^3/uL (0.1-1.4); ABSOLUTE NEUT (AUTO) 3.7 10^3/uL (1.7-8.2); BASOPHILS % (AUTO) 1.2 % (0-2); EOSINOPHILS % (AUTO) 3.8 % (0-6); HEMOGLOBIN 10.1 g/dL (12.0-15.5); LYMPHOCYTES % (AUTO) 8.6 % (13-45); MEAN CORPUSCULAR HGB CONC 33.8 g/dL (32.0-36.0); MEAN CORPUSCULAR VOLUME 92 fl (80-97); MONOCYTES % (AUTO) 7.8 % (3-13); PLATELET COUNT 252 10^3/uL (150-450); RED BLOOD COUNT 3.26 10^6/uL (3.72-5.28); RED CELL DISTRIBUTION WIDTH 15.9 % (11.5-14.0); SEGMENTED NEUTROPHILS % (AUTO) 78.6 % (42-78); TOTAL CELLS COUNTED % (AUTO) 100 %; WHITE BLOOD COUNT 4.7 10^3/uL (4.0-10.5)
[2018-02-17 08:25] LABS: ANION GAP 11 (5-19); BLOOD UREA NITROGEN 34 mg/dL (7-20); CALCIUM 9.6 mg/dL (8.4-10.2); CARBON DIOXIDE 27 mmol/L (22-30); CHLORIDE 102 mmol/L (98-107); GLUCOSE 105 mg/dL (75-110); POTASSIUM 4.6 mmol/L (3.6-5.0); SODIUM 139.5 mmol/L (137-145)
== END ==
LOC: OD 07:07
PROVIDERS: ATTEND Internal Medicine Nephrology
DX: I12.9 Hypertensive chronic kidney disease with stage 1 through stage 4 chronic kidney disease, or unspecified chronic kidney disease (principal); N18.3 Chronic kidney disease, stage 3 (moderate); D64.9 Anemia, unspecified
CPT/HCPCS: 36415; 80048; 82728; 83540; 83550; 85025

== ENCOUNTER → 2018-05-04 | Outpatient (CLI) | payer MEDICARE, BC ==
[2018-05-04 16:25] LABS: ABSOLUTE LYMPHOCYTES (AUTO) 0.3 10^3/uL (0.5-4.7); ABSOLUTE MONOCYTES (AUTO) 0.3 10^3/uL (0.1-1.4); ABSOLUTE NEUT (AUTO) 4.4 10^3/uL (1.7-8.2); BASOPHILS % (AUTO) 0.8 % (0-2); EOSINOPHILS % (AUTO) 0.5 % (0-6); HEMOGLOBIN 10.4 g/dL (12.0-15.5); LYMPHOCYTES % (AUTO) 6.3 % (13-45); MEAN CORPUSCULAR HEMOGLOBIN 31.7 pg (27.0-33.4); MEAN CORPUSCULAR HGB CONC 34.6 g/dL (32.0-36.0); MEAN CORPUSCULAR VOLUME 92 fl (80-97); MONOCYTES % (AUTO) 6.8 % (3-13); PLATELET COUNT 265 10^3/uL (150-450); RED BLOOD COUNT 3.28 10^6/uL (3.72-5.28); RED CELL DISTRIBUTION WIDTH 14.2 % (11.5-14.0); SEGMENTED NEUTROPHILS % (AUTO) 85.6 % (42-78); TOTAL CELLS COUNTED % (AUTO) 100 %; WHITE BLOOD COUNT 5.1 10^3/uL (4.0-10.5)
[2018-05-04 16:40] LABS: ANION GAP 16 (5-19); BLOOD UREA NITROGEN 26 mg/dL (7-20); CALCIUM 10.1 mg/dL (8.4-10.2); CARBON DIOXIDE 21 mmol/L (22-30); CHLORIDE 98 mmol/L (98-107); GLUCOSE 95 mg/dL (75-110); IRON(TIBC) 31.7 ug/dL (37-170); SODIUM 134.6 mmol/L (137-145)
== END ==
LOC: OD 15:54
PROVIDERS: ATTEND Internal Medicine Nephrology
DX: I12.9 Hypertensive chronic kidney disease with stage 1 through stage 4 chronic kidney disease, or unspecified chronic kidney disease (principal); N18.3 Chronic kidney disease, stage 3 (moderate); D64.9 Anemia, unspecified
CPT/HCPCS: 36415; 80048; 82728; 83540; 83550; 85025

== ENCOUNTER 2018-05-23 17:25 | Inpatient (IN) | payer BC, MEDICARE ==
--- NOTE | 2018-05-23 18:04 | ER Document Report ---
ED Medical Screen (RME) - General Chief Complaint: Weakness Stated Complaint: WEAKNESS Time Seen by Provider: 05/23/18 17:57 Primary Care Provider: ELENA SILVA MD [Primary Care Provider] - Follow up as needed Notes: RAPID MEDICAL EVALUATION DISCLOSURE I have seen this patient as part of a Rapid Medical Evaluation and, if applicable, placed any initially appropriate orders. The patient will be seen and fully evaluated, including a full history and physical exam, by a provider (in Main ED or Fast Track) when a room becomes available. 83-year-old female here with complaints of continued generalized weakness, fatigue, and poor appetite ongoing for the past 6-8 months ever since her blood pressure medication was switched to hydralazine. She has also had some diarrhea over the past 3-4 days but no abdominal pain urinary symptoms. She did have some URI symptoms however these have resolved. Family member states that all she does is "sit on the couch all day long" due to her lack of energy so they decided to bring her in for evaluation. EXAM CTAB RRR TRAVEL OUTSIDE OF THE [place] IN LAST 30 DAYS: No - Related Data Allergies/Adverse Reactions: No Known Allergies Allergy (Verified 05/23/18 17:26) Past Medical History - Past Medical History Cardiac Medical History: Reports: Hx Hypertension - ON MEDS TOPROL Denies: Hx Coronary Artery Disease, Hx Heart Attack Pulmonary Medical History: Reports: Hx Pneumonia - Hx of, 1984 Denies: Hx Asthma, Hx Bronchitis, Hx COPD Neurological Medical History: Denies: Hx Cerebrovascular Accident, Hx Seizures Renal/ Medical History: Denies: Hx Peritoneal Dialysis GI Medical History: Denies: Hx Hepatitis, Hx Hiatal Hernia, Hx Ulcer Musculoskeltal Medical History: Reports Hx Arthritis - hips Infectious Medical History: Denies: Hx Hepatitis Past Surgical History: Denies: Hx Mastectomy, Hx Open Heart Surgery, Hx Pacemaker - Immunizations Hx Diphtheria, Pertussis, Tetanus Vaccination: No Physical Exam - Vital signs Vitals: Temp Pulse Resp BP Pulse Ox 98 F 83 18 150/62 H 97 05/23/18 17:41 05/23/18 17:41 05/23/18 17:41 05/23/18 17:41 05/23/18 17:41 Course - Vital Signs Vital signs: Temp Pulse Resp BP Pulse Ox 98 F 83 18 150/62 H 97 05/23/18 17:41 05/23/18 17:41 05/23/18 17:41 05/23/18 17:41 05/23/18 17:41 Doctor's Discharge - Discharge Referrals: ELENA SILVA MD [Primary Care Provider] - Follow up as needed
[2018-05-23 18:59] LABS: APPEARANCE,URINE SLIGHTLY-CLOUDY; BILIRUBIN,URINE NEGATIVE (NEGATIVE); COLOR,URINE YELLOW; GLUCOSE, URINE NEGATIVE (NEGATIVE); KETONES,URINE TRACE mg/dL (NEGATIVE); LEUKOCYTE ESTERASE,URINE NEGATIVE (NEGATIVE); NITRITE,URINE NEGATIVE (NEGATIVE); PROTEIN,URINE 30 mg/dL (NEGATIVE); URINE SPECIFIC GRAVITY 1.017; UROBILINOGEN,URINE NEGATIVE mg/dL (<2.0)
[2018-05-23 19:05] LABS: ABSOLUTE BASOPHILS # (AUTO) 0.1 10^3/uL (0.0-0.2); ABSOLUTE LYMPHOCYTES (AUTO) 0.5 10^3/uL (0.5-4.7); ABSOLUTE MONOCYTES (AUTO) 0.4 10^3/uL (0.1-1.4); ABSOLUTE NEUT (AUTO) 6.7 10^3/uL (1.7-8.2); BASOPHILS % (AUTO) 0.7 % (0-2); EOSINOPHILS % (AUTO) 0.5 % (0-6); HEMATOCRIT 31.5 % (36.0-47.0); HEMOGLOBIN 10.9 g/dL (12.0-15.5); LYMPHOCYTES % (AUTO) 6.6 % (13-45); MEAN CORPUSCULAR HEMOGLOBIN 31.5 pg (27.0-33.4); MEAN CORPUSCULAR HGB CONC 34.5 g/dL (32.0-36.0); MEAN CORPUSCULAR VOLUME 91 fl (80-97); PLATELET COUNT 385 10^3/uL (150-450); RED BLOOD COUNT 3.45 10^6/uL (3.72-5.28); RED CELL DISTRIBUTION WIDTH 13.3 % (11.5-14.0); SEGMENTED NEUTROPHILS % (AUTO) 87.2 % (42-78); TOTAL CELLS COUNTED % (AUTO) 100 %; WHITE BLOOD COUNT 7.6 10^3/uL (4.0-10.5)
--- NOTE | 2018-05-23 19:06 | ER Document Report ---
ED General - General Chief Complaint: Weakness Stated Complaint: WEAKNESS Time Seen by Provider: 05/23/18 17:57 Notes: Patient is a 83-year-old female that presents to the emergency department for chief complaint of generalized weakness and possible dehydration. Patient states she is been having a decline over the past year, she is had a 25 pound weight loss, decreased appetite and weakness, this had to the point where she wanted to come to the emergency department to have herself evaluated. 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 She states she has chronic kidney disease as well, and hypertension and that is why she is on the hydralazine and she is convinced that this is likely the cause. She denies having any vomiting has had nausea a few days ago and had diarrhea a few days ago as well. She just does not want to eat and has no appetite at all. Past Medical History: CKD, hypertension Past Surgical History: Denies recent or pertinent surgical history Social History: Denies current tobacco, alcohol or illicit drug use. Family History: Reviewed and noncontributory for presenting illness Allergies: Reviewed, see documented allergy list. REVIEW OF SYSTEMS: Other than noted above, the 12 point review of systems was reviewed with the patient and were negative, all pertinent findings are included in the HPI. PHYSICAL EXAMINATION: Vital signs reviewed, nursing noted reviewed. GENERAL: Elderly, frail-appearing female, no acute distress HEAD: Atraumatic, normocephalic. EYES: Eyes appear normal, extraocular movements intact, sclera anicteric, conjunctiva are normal. ENT: nares patent, oropharynx clear without exudates. Moist mucous membranes. NECK: Normal range of motion, supple without lymphadenopathy LUNGS: Breath sounds clear to auscultation bilaterally and equal. No wheezes rales or rhonchi. HEART: Regular rate and rhythm without murmurs ABDOMEN: Soft, nontender, normoactive bowel sounds. No rebound, guarding, or rigidity. No masses appreciated. EXTREMITIES: Nontender, good range of motion, no pitting or edema. NEUROLOGICAL: No focal neurological deficits. Moves all extremities spontaneously Motor and sensory grossly intact on exam. PSYCH: Normal mood, normal affect. SKIN: Warm, Dry, normal turgor, no rashes or lesions noted on exposed skin TRAVEL OUTSIDE OF THE [place] IN LAST 30 DAYS: No - Related Data Allergies/Adverse Reactions: No Known Allergies Allergy (Verified 05/23/18 17:26) Past Medical History - Social History Smoking Status: Never Smoker Family History: Reviewed & Not Pertinent Patient has suicidal ideation: No Patient has homicidal ideation: No - Past Medical History Cardiac Medical History: Reports: Hx Hypertension - ON MEDS TOPROL Denies: Hx Coronary Artery Disease, Hx Heart Attack Pulmonary Medical History: Reports: Hx Pneumonia - Hx of, 1984 Denies: Hx Asthma, Hx Bronchitis, Hx COPD Neurological Medical History: Denies: Hx Cerebrovascular Accident, Hx Seizures Renal/ Medical History: Denies: Hx Peritoneal Dialysis GI Medical History: Denies: Hx Hepatitis, Hx Hiatal Hernia, Hx Ulcer Musculoskeletal Medical History: Reports Hx Arthritis - hips Infectious Medical History: Denies: Hx Hepatitis Past Surgical History: Denies: Hx Mastectomy, Hx Open Heart Surgery, Hx Pacemaker - Immunizations Hx Diphtheria, Pertussis, Tetanus Vaccination: No Physical Exam - Vital signs Vitals: Temp Pulse Resp BP Pulse Ox 98 F 83 18 150/62 H 97 05/23/18 17:41 05/23/18 17:41 05/23/18 17:41 05/23/18 17:41 05/23/18 17:41 Course - Re-evaluation Re-evalutation: Patient seen and examined vital signs reviewed. Laboratory data and imaging were ordered as appropriate for the patient's presenting symptoms and complaint, with consideration of any critical or life threatening conditions that may be associated with their obtained history and exam as noted above. Patient was treated with IV fluids a total liter and a half Results were reviewed when available and demonstrated mild anemia, at baseline, chronic kidney disease, actually improved creatinine from baseline and recent studies, TSH was normal, I did add an ESR and CRP which were both noted to be markedly elevated, which could be related to the patient's liver masses particularly if they are cancerous, however I did add on anti-histone antibodies, to evaluate for possible drug-induced lupus from the patient's hydralazine which could be explaining some of her weakness, but do not want to diagnose her with this at this time I discussed with her this is a follow-up lab and may take several days to come back. The patient was re-evaluated and was somewhat improved after IV fluids Her chest x-ray was abnormal, with patchy areas and effusions, will obtain CT imaging to further delineate these findings, on CT there is a moderate pleural effusion on the right, and smaller one on the left, with possible bilateral pneumonia recent imaging and clinical presentation, will treat the patient with IV Rocephin and azithromycin, she likely need thoracentesis, to evaluate her etiology of the pleural effusions, pneumonia is a possibility versus malignant effusion Results were discussed with the patient at this point after careful consideration I feel that that patient should be admitted to the hospital. This was discussed with the patient that it is in the best interest for their care to be admitted for further evaluation and management. Patient agreed with this plan of care. A call was placed to the admitted physician, Dr. Bean who graciously accepted the patient onto their service. *Note is created using voice recognition software and may contain spelling, syntax or grammatical errors. Laboratory 05/23/18 05/23/18 05/23/18 18:42 18:42 18:42 WBC 7.6 RBC 3.45 L Hgb 10.9 L Hct 31.5 L MCV 91 MCH 31.5 MCHC 34.5 RDW 13.3 Plt Count 385 Seg Neutrophils % 87.2 H Lymphocytes % 6.6 L Monocytes % 5.0 Eosinophils % 0.5 Basophils % 0.7 Absolute Neutrophils 6.7 Absolute Lymphocytes 0.5 Absolute Monocytes 0.4 Absolute Eosinophils 0.0 Absolute Basophils 0.1 ESR Sodium 136.8 L Potassium 4.4 Chloride 100 Carbon Dioxide 16 L Anion Gap 21 H BUN 25 H Creatinine 1.63 H Est GFR ( Amer) 37 L Est GFR (Non-Af Amer) 30 L Glucose 80 Calcium 10.2 Magnesium 2.0 Total Bilirubin 0.9 Direct Bilirubin 0.6 H Neonat Total Bilirubin Not Reportable Neonat Direct Bilirubin Not Reportable Neonat Indirect Bili Not Reportable AST 30 ALT 16 Alkaline Phosphatase 150 H C-Reactive Protein Total Protein 6.9 Albumin 4.3 TSH 4.07 Urine Color Urine Appearance Urine pH Ur Specific [place] Urine Protein Urine Glucose (UA) Urine Ketones Urine Blood Urine Nitrite Urine Bilirubin Urine Urobilinogen Ur Leukocyte Esterase Urine WBC (Auto) Urine RBC (Auto) Squamous Epi Cells Auto Urine Mucus (Auto) Urine Ascorbic Acid 05/23/18 05/23/18 05/23/18 18:42 18:42 18:42 WBC RBC Hgb Hct MCV MCH MCHC RDW Plt Count Seg Neutrophils % Lymphocytes % Monocytes % Eosinophils % Basophils % Absolute Neutrophils Absolute Lymphocytes Absolute Monocytes Absolute Eosinophils Absolute Basophils ESR 114 H Sodium Potassium Chloride Carbon Dioxide Anion Gap BUN Creatinine Est GFR ( Amer) Est GFR (Non-Af Amer) Glucose Calcium Magnesium Total Bilirubin Direct Bilirubin Neonat Total Bilirubin Neonat Direct Bilirubin Neonat Indirect Bili AST ALT Alkaline Phosphatase C-Reactive Protein 162.9 H Total Protein Albumin TSH Urine Color YELLOW Urine Appearance SLIGHTLY-CLOUDY Urine pH 5.0 Ur Specific [place] 1.017 Urine Protein 30 H Urine Glucose (UA) NEGATIVE Urine Ketones TRACE H Urine Blood MODERATE H Urine Nitrite NEGATIVE Urine Bilirubin NEGATIVE Urine Urobilinogen NEGATIVE Ur Leukocyte Esterase NEGATIVE Urine WBC (Auto) 3 Urine RBC (Auto) 4 Squamous Epi Cells Auto <1 Urine Mucus (Auto) RARE Urine Ascorbic Acid NEGATIVE Chest X-Ray 05/23/18 18:01 IMPRESSION: Bilateral pleural effusions and diffuse patchy airspace opacities suggests multi lobar pneumonia. Recommend consideration of atypical organisms in treatment planning. Chest X-Ray 05/23/18 18:01 IMPRESSION: Bilateral pleural effusions and diffuse patchy airspace opacities suggests multi lobar pneumonia. Recommend consideration of atypical organisms in treatment planning. Chest CT 05/23/18 21:03 IMPRESSION: Bilateral pleural effusions. Bilateral lower lobe consolidation/atelectasis, suspicious for pneumonia. Cardiomegaly with probable pulmonary vascular congestion. Possible interstitial edema. Hazy upper lobe infiltrate. Diagnostic possibilities include pulmonary edema and pneumonia. Low density liver lesions. Metastatic disease cannot be excluded. Nonemergent ultrasound might prove helpful for further evaluation. TECHNICAL DOCUMENTATION: Quality ID # 436: Final reports with documentation of one or more dose reduction techniques (e.g., Automated exposure control, adjustment of the mA and/or kV according to patient size, use of iterative reconstruction technique) copyright 2011 [employer] All Rights Reserved 05/24/18 00:51 - Vital Signs Vital signs: Temp Pulse Resp BP Pulse Ox 98 F 83 22 H 125/77 94 05/23/18 17:41 05/23/18 17:41 05/24/18 00:01 05/24/18 00:01 05/24/18 00:01 - Laboratory Result Diagrams: 05/23/18 18:42 05/23/18 18:42 Laboratory results interpreted by me: 05/23/18 05/23/18 05/23/18 18:42 18:42 18:42 RBC 3.45 L Hgb 10.9 L Hct 31.5 L Seg Neutrophils % 87.2 H Lymphocytes % 6.6 L ESR Sodium 136.8 L Carbon Dioxide 16 L Anion Gap 21 H BUN 25 H Creatinine 1.63 H Est GFR ( Amer) 37 L Est GFR (Non-Af Amer) 30 L Direct Bilirubin 0.6 H Alkaline Phosphatase 150 H C-Reactive Protein Carcinoembryonic Ag Urine Protein 30 H Urine Ketones TRACE H Urine Blood MODERATE H 05/23/18 05/23/18 05/23/18 18:42 18:42 18:42 RBC Hgb Hct Seg Neutrophils % Lymphocytes % ESR 114 H Sodium Carbon Dioxide Anion Gap BUN Creatinine Est GFR ( Amer) Est GFR (Non-Af Amer) Direct Bilirubin Alkaline Phosphatase C-Reactive Protein 162.9 H Carcinoembryonic Ag 3.2 H Urine Protein Urine Ketones Urine Blood Discharge - Discharge Clinical Impression: Pleural effusion, right Pneumonia Qualifiers: Pneumonia type: due to unspecified organism Laterality: bilateral Lung location: lower lobe of lung Qualified Code(s): J18.1 - Lobar pneumonia, unspeci fied organism Anemia Qualifiers: Anemia type: unspecified type Qualified Code(s): D64.9 - Anemia, unspecified Chronic kidney disease Qualifiers: Chronic kidney disease stage: unspecified stage Qualified Code(s): N18.9 - Chronic kidney disease, unspecified Condition: Stable Disposition: ADMITTED INPATIENT Admitting Provider: Hospitalist - Dr. Bean Unit Admitted: Telemetry
--- NOTE | 2018-05-23 19:24 | RADIOLOGY REPORT (SQ) ---
EXAM DESCRIPTION: CHEST 2 VIEWS COMPLETED DATE/TIME: 05/23/2018 7:10 pm REASON FOR STUDY: gen weak; eval pneumonia COMPARISON: Gunnery/Ordnance Officer images from CT abdomen and pelvis 11/13/2017 EXAM PARAMETERS: NUMBER OF VIEWS: two views TECHNIQUE: Digital Frontal and Lateral radiographic views of the chest acquired. RADIATION DOSE: NA LIMITATIONS: none FINDINGS: LUNGS AND PLEURA: Bilateral pleural effusions are present with fluid tracking into the adan or fissures. Subtle patchy pulmonary opacities are present. No focal consolidation is evident. No pneumothorax. MEDIASTINUM AND HILAR STRUCTURES: No masses or contour abnormalities. HEART AND VASCULAR STRUCTURES: Heart normal size. No evidence for failure. BONES: No acute findings. HARDWARE: None in the chest. OTHER: No other significant finding. IMPRESSION: Bilateral pleural effusions and diffuse patchy airspace opacities suggests multi lobar p neumonia. Recommend consideration of atypical organisms in treatment planning. TECHNICAL DOCUMENTATION: JOB ID: [id number] [employer]- All Rights Reserved Reading location - IP/workstation name: [email or web address]
[2018-05-23 19:26] LABS: ALANINE AMINOTRANSFERASE 16 U/L (9-52); ALBUMIN 4.3 g/dL (3.5-5.0); ALKALINE PHOSPHATASE 150 U/L (38-126); ASPARTATE AMINO TRANSFERASE 30 U/L (14-36); BILIRUBIN,DIRECT 0.6 mg/dL (0.0-0.4); BILIRUBIN,TOTAL 0.9 mg/dL (0.2-1.3); BLOOD UREA NITROGEN 25 mg/dL (7-20); CALCIUM 10.2 mg/dL (8.4-10.2); GLUCOSE 80 mg/dL (75-110); POTASSIUM 4.4 mmol/L (3.6-5.0); TOTAL PROTEIN 6.9 g/dL (6.3-8.2)
[2018-05-23] MEDS ORDERED: NORMAL SALINE 500 ML IV ONE (19:27)
[2018-05-23 19:31] LABS: ANION GAP 21 (5-19); CARBON DIOXIDE 16 mmol/L (22-30); CHLORIDE 100 mmol/L (98-107); SODIUM 136.8 mmol/L (137-145)
[2018-05-23] MEDS ORDERED: RINGERS SOLUTION,LACTATED 1,000 ML IV ONE (20:27)
--- NOTE | 2018-05-23 22:58 | RADIOLOGY REPORT (SQ) ---
EXAM DESCRIPTION: CT CHEST WITHOUT IV CONTRAST COMPLETED DATE/TME: 05/23/2018 21:03 CLINICAL HISTORY: 83 years, Female, weakness, abnormal cxr COMPARISON: None. TECHNIQUE: Axial images of the chest were performed without the use of intravenous contrast, with sagittal and coronal reformatted images. Images stored on PACS. All CT scanners at this facility use dose modulation, iterative reconstruction, and/or weight based dosing when appropriate to reduce radiation dose to as low as reasonably achievable (ALARA). [facility]: Dose Right [facility]: CareDose [facility]: Dose Right [facility]: Teradose 4D [facility]: [employer] LIMITATIONS: None. FINDINGS: There are bilateral pleural effusions, right side larger than left. There is bilateral lower lobe consolidation/atelectasis, suspicious for pneumonia. There is cardiomegaly, with probable pulmonary vascular congestion. There is interstitial pulmonary thickening, possibly interstitial edema. There is hazy infiltrate in the upper lobes bilaterally. Images of the upper abdomen show 2 low-density lesions in the right lobe of the liver, measuring 3.5 and 3.3 cm respectively. IMPRESSION: Bilateral pleural effusions. Bilateral lower lobe consolidation/atelectasis, suspicious for pneumonia. Cardiomegaly with probable pulmonary vascular congestion. Possible interstitial edema. Hazy upper lobe infiltrate. Diagnostic possibilities include pulmonary edema and pneumonia. Low density liver lesions. Metastatic disease cannot be excluded. Nonemergent ultrasound might prove helpful for further evaluation. TECHNICAL DOCUMENTATION: Quality ID # 436: Final reports with documentation of one or more dose reduction techniques (e.g., Automated exposure control, adjustment of the mA and/or kV according to patient size, use of iterative reconstruction technique) copyright 2011 [employer]- All Rights Reserved
[2018-05-23] MEDS ORDERED: CEFTRIAXONE 1 GM/D5W RTU 1 GM/50 ML RTUPB IV ONE (23:07)
[2018-05-23] MEDS ORDERED: AZITHROMYCIN INJ 500 MG VIAL IV ONE (23:07)
[2018-05-23] MEDS ORDERED: IPRATROPIUM/ALBUTEROL 0.5-2.5 MG/3 ML AMPUL NEB PRN (23:18)
[2018-05-23] MEDS ORDERED: ACETAMINOPHEN 325 MG TABLET PO PRN (23:18)
[2018-05-23] MEDS ORDERED: MAG HYDROX/AL HYDROX/SIMETH SUSP 30 ML UDCUP PO PRN (23:18)
[2018-05-23] MEDS ORDERED: CLONIDINE 0.1 MG/24 HR PATCH.TDWK TD ONE (23:30)
[2018-05-24] MEDS ORDERED: AZITHROMYCIN INJ 500 MG VIAL IV ONE (02:50)
[2018-05-24 02:53] LABS: ABSOLUTE EOSINOPHILS # (AUTO) 0.1 10^3/uL (0.0-0.6); ABSOLUTE LYMPHOCYTES (AUTO) 0.3 10^3/uL (0.5-4.7); ABSOLUTE MONOCYTES (AUTO) 0.4 10^3/uL (0.1-1.4); ABSOLUTE NEUT (AUTO) 3.9 10^3/uL (1.7-8.2); BASOPHILS % (AUTO) 0.7 % (0-2); EOSINOPHILS % (AUTO) 1.5 % (0-6); HEMATOCRIT 24.7 % (36.0-47.0); LYMPHOCYTES % (AUTO) 6.9 % (13-45); MEAN CORPUSCULAR HEMOGLOBIN 30.8 pg (27.0-33.4); MEAN CORPUSCULAR VOLUME 91 fl (80-97); MONOCYTES % (AUTO) 8.7 % (3-13); PLATELET COUNT 292 10^3/uL (150-450); RED BLOOD COUNT 2.72 10^6/uL (3.72-5.28); RED CELL DISTRIBUTION WIDTH 13.1 % (11.5-14.0); SEGMENTED NEUTROPHILS % (AUTO) 82.2 % (42-78); TOTAL CELLS COUNTED % (AUTO) 100 %; WHITE BLOOD COUNT 4.8 10^3/uL (4.0-10.5)
[2018-05-24 02:54] LABS: HEMOGLOBIN 8.4 g/dL (12.0-15.5)
[2018-05-24 03:05] LABS: ALANINE AMINOTRANSFERASE 22 U/L (9-52); ALBUMIN 3.4 g/dL (3.5-5.0); ALKALINE PHOSPHATASE 108 U/L (38-126); ANION GAP 17 (5-19); ASPARTATE AMINO TRANSFERASE 20 U/L (14-36); BILIRUBIN,DIRECT 0.5 mg/dL (0.0-0.4); BILIRUBIN,TOTAL 0.6 mg/dL (0.2-1.3); BLOOD UREA NITROGEN 23 mg/dL (7-20); CALCIUM 9.3 mg/dL (8.4-10.2); CARBON DIOXIDE 14 mmol/L (22-30); CHLORIDE 105 mmol/L (98-107); GLUCOSE 81 mg/dL (75-110); TOTAL PROTEIN 5.8 g/dL (6.3-8.2)
--- NOTE | 2018-05-24 05:41 | PDOC H&P ---
History of Present Illness Admission Date/PCP: 05/23/18 23:24 ELENA SILVA MD Patient complains of: Shortness of breath History of Present Illness: MATEO FRYE is a 83 year old female with past medical history of hypertension, stage II chronic kidney disease and recently diagnosed hepatic mass. Presents with shortness of breath with exertion, early satiety, fatigue and 25 pound weight loss in 6 months. She denies chest pain palpitations nausea or vomiting. She denies history of hepatitis, her father of pancreatic cancer. CT reveals large right-sided pleural effusion with atelectasis versus infiltrate and hepatic masses. She started on Rocephin and azithromycin and referred to the hospitalist for admission. Past Medical History Cardiac Medical History: Reports: Hypertension - ON MEDS TOPROL Denies: Coronary Artery Disease, Myocardial Infarction Pulmonary Medical History: Reports: Pneumonia - Hx of, 1984 Denies: Asthma, Bronchitis, Chronic Obstructive Pulmonary Disease (COPD) Neurological Medical History: Denies: Seizures GI Medical History: Denies: Hepatitis, Hiatal Hernia Musculoskeltal Medical History: Comment Only: Arthritis - hips Hematology: Reports: Anemia - BORDERLINE NO MEDS Denies: Sickle Cell Disease Past Surgical History Past Surgical History: Denies: Amputation, Mastectomy, Pacemaker Social History Information Source: Patient Lives with: Family Smoking Status: Never Smoker Frequency of Alcohol Use: None Hx Recreational Drug Use: No Drugs: None - Advance Directive Resuscitation Status: Full Code Family History Family History: Malignancy - Father with pancreatic cancer Parental Family History Reviewed: Yes Children Family History Reviewed: Yes Sibling(s) Family History Reviewed.: Yes Medication/Allergy Home Medications: Allopurinol [Zyloprim 100 mg Tablet] 100 mg PO DAILY 12/12/17 Cholecalciferol (Vitamin D3) [Vitamin D3] 400 unit PO DAILY 12/12/17 Clonidine [Catapres-Tts 1 (0.1 mg/24 Hr) Transderm Patch] 1 patch TD .QWEEKLY 12/12/17 Fenofibrate Nanocrystallized [Fenofibrate] 48 mg PO DAILY 12/12/17 Hydralazine HCl 100 mg PO BID 12/12/17 Levothyroxine Sodium 50 mcg PO DAILY 12/12/17 [place]-3 Fatty Acids/Fish Oil [Fish Oil 1,000 mg Capsule] 1 each PO BID 12/12/17 Allergies/Adverse Reactions: No Known Allergies Allergy (Verified 05/23/18 17:26) Review of Systems Constitutional: PRESENT: as per HPI, anorexia, fatigue, weakness, weight loss Eyes: ABSENT: visual disturbances Ears: ABSENT: hearing changes Cardiovascular: PRESENT: dyspnea on exertion, orthropnea. ABSENT: chest pain, edema, palpitations Respiratory: PRESENT: cough, dyspnea. ABSENT: hemoptysis, sputum Gastrointestinal: PRESENT: as per HPI, bloating. ABSENT: constipation, diarrhea, hematemesis, hematochezia, vomiting Genitourinary: ABSENT: dysuria, hematuria Musculoskeletal: ABSENT: joint swelling Integumentary: ABSENT: rash, wounds Neurological: ABSENT: abnormal gait, abnormal speech, confusion, dizziness, focal weakness, syncope Psychiatric: ABSENT: anxiety, depression, homidical ideation, suicidal ideation Endocrine: ABSENT: cold intolerance, heat intolerance, polydipsia, polyuria Hematologic/Lymphatic: ABSENT: easy bleeding, easy bruising Physical Exam Vital Signs: Temp Pulse Resp BP Pulse Ox 98 F 83 22 H 125/77 94 05/23/18 17:41 05/23/18 17:41 05/24/18 00:01 05/24/18 00:01 05/24/18 00:01 Intake & Output 05/22/18 05/23/18 05/24/18 11:59 11:59 11:59 Intake Total 1550 Balance 1550 Weight 50 kg General appearance: PRESENT: cooperative, mild distress, thin, well-developed, well-nourished Head exam: PRESENT: atraumatic, normocephalic Eye exam: PRESENT: conjunctiva pale, EOMI, PERRLA. ABSENT: scleral icterus Ear exam: PRESENT: normal external ear exam Mouth exam: PRESENT: moist, tongue midline Neck exam: ABSENT: carotid bruit, JVD, lymphadenopathy, thyromegaly Respiratory exam: PRESENT: crackles, decreased breath sounds - Right-sided dullness to the fifth rib. ABSENT: rales, rhonchi, wheezes Cardiovascular exam: PRESENT: RRR. ABSENT: diastolic murmur, rubs, systolic murmur Pulses: PRESENT: normal dorsalis pedis pul Vascular exam: PRESENT: normal capillary refill GI/Abdominal exam: PRESENT: normal bowel sounds, soft, tenderness - Right upper quadrant no guarding. ABSENT: distended, guarding, mass, organolmegaly, rebound Rectal exam: PRESENT: deferred Extremities exam: PRESENT: full ROM. ABSENT: calf tenderness, clubbing, pedal edema Neurological exam: PRESENT: alert, awake, oriented to person, oriented to place, oriented to time, oriented to situation, CN II-XII grossly intact. ABSENT: motor sensory deficit Psychiatric exam: PRESENT: appropriate affect, normal mood. ABSENT: homicidal ideation, suicidal ideation Skin exam: PRESENT: dry, intact, warm. ABSENT: cyanosis, rash Results Laboratory Results: 05/24/18 02:43 05/24/18 02:43 05/23/18 05/23/18 05/23/18 18:42 18:42 18:42 WBC 7.6 RBC 3.45 L Hgb 10.9 L Hct 31.5 L MCV 91 MCH 31.5 MCHC 34.5 RDW 13.3 Plt Count 385 Seg Neutrophils % 87.2 H Lymphocytes % 6.6 L Monocytes % 5.0 Eosinophils % 0.5 Basophils % 0.7 Absolute Neutrophils 6.7 Absolute Lymphocytes 0.5 Absolute Monocytes 0.4 Absolute Eosinophils 0.0 Absolute Basophils 0.1 Sodium 136.8 L Potassium 4.4 Chloride 100 Carbon Dioxide 16 L Anion Gap 21 H BUN 25 H Creatinine 1.63 H Est GFR ( Amer) 37 L Est GFR (Non-Af Amer) 30 L Glucose 80 Calcium 10.2 Magnesium 2.0 Total Bilirubin 0.9 AST 30 ALT 16 Alkaline Phosphatase 150 H C-Reactive Protein Total Protein 6.9 Albumin 4.3 TSH 4.07 Urine Color Urine Appearance Urine pH Ur Specific [place] Urine Protein Urine Glucose (UA) Urine Ketones Urine Blood Urine Nitrite Ur Leukocyte Esterase Urine WBC (Auto) Urine RBC (Auto) 05/23/18 05/23/18 05/24/18 18:42 18:42 02:43 WBC 4.8 RBC 2.72 L Hgb 8.4 L D Hct 24.7 L MCV 91 MCH 30.8 MCHC 34.0 RDW 13.1 Plt Count 292 Seg Neutrophils % 82.2 H Lymphocytes % 6.9 L Monocytes % 8.7 Eosinophils % 1.5 Basophils % 0.7 Absolute Neutrophils 3.9 Absolute Lymphocytes 0.3 L Absolute Monocytes 0.4 Absolute Eosinophils 0.1 Absolute Basophils 0.0 Sodium Potassium Chloride Carbon Dioxide Anion Gap BUN Creatinine Est GFR ( Amer) Est GFR (Non-Af Amer) Glucose Calcium Magnesium Total Bilirubin AST ALT Alkaline Phosphatase C-Reactive Protein 162.9 H Total Protein Albumin TSH Urine Color YELLOW Urine Appearance SLIGHTLY-CLOUDY Urine pH 5.0 Ur Specific [place] 1.017 Urine Protein 30 H Urine Glucose (UA) NEGATIVE Urine Ketones TRACE H Urine Blood MODERATE H Urine Nitrite NEGATIVE Ur Leukocyte Esterase NEGATIVE Urine WBC (Auto) 3 Urine RBC (Auto) 4 05/24/18 02:43 WBC RBC Hgb Hct MCV MCH MCHC RDW Plt Count Seg Neutrophils % Lymphocytes % Monocytes % Eosinophils % Basophils % Absolute Neutrophils Absolute Lymphocytes Absolute Monocytes Absolute Eosinophils Absolute Basophils Sodium 136.0 L Potassium 4.0 Chloride 105 Carbon Dioxide 14 L Anion Gap 17 BUN 23 H Creatinine 1.54 H Est GFR ( Amer) 39 L Est GFR (Non-Af Amer) 32 L Glucose 81 Calcium 9.3 Magnesium Total Bilirubin 0.6 AST 20 ALT 22 Alkaline Phosphatase 108 C-Reactive Protein Total Protein 5.8 L Albumin 3.4 L TSH Urine Color Urine Appearance Urine pH Ur Specific [place] Urine Protein Urine Glucose (UA) Urine Ketones Urine Blood Urine Nitrite Ur Leukocyte Esterase Urine WBC (Auto) Urine RBC (Auto) Impressions: Chest X-Ray 05/23/18 18:01 IMPRESSION: Bilateral pleural effusions and diffuse patchy airspace opacities suggests multi lobar pneumonia. Recommend consideration of atypical organisms in treatment planning. Chest CT 05/23/18 21:03 IMPRESSION: Bilateral pleural effusions. Bilateral lower lobe consolidation/atelectasis, suspicious for pneumonia. Cardiomegaly with probable pulmonary vascular congestion. Possible interstitial edema. Hazy upper lobe infiltrate. Diagnostic possibilities include pulmonary edema and pneumonia. Low density liver lesions. Metastatic disease cannot be excluded. Nonemergent ultrasound might prove helpful for further evaluation. TECHNICAL DOCUMENTATION: Quality ID # 436: Final reports with documentation of one or more dose reduction techniques (e.g., Automated exposure control, adjustment of the mA and/or kV according to patient size, use of iterative reconstruction technique) copyright 2011 [employer]- All Rights Reserved Assessment & Plan - Diagnosis (1) Liver mass Is this a current diagnosis for this admission?: Yes Plan: Follow-up GI consult. (2) Anemia Qualifiers: Anemia type: unspecified type Qualified Code(s): D64.9 - Anemia, unspecified Is this a current diagnosis for this admission?: Yes Plan: Likely secondary to chronic illness, follow-up anemia labs (3) Pleural effusion, right Is this a current diagnosis for this admission?: Yes Plan: Follow-up pulmonology consult for thoracentesis possible inflammatory versus malignant given atelectasis versus pneumonia and adjacent liver mass. (4) Pneumonia Qualifiers: Pneumonia type: due to unspecified organism Laterality: bilateral Lung location: lower lobe of lung Qualified Code(s): J18.1 - Lobar pneumonia, unspecified organism Is this a current diagnosis for this admission?: Yes Plan: Unclear if pneumonia versus atelectasis. Incentive spirometry, empiric antibiotics, thoracentesis. Follow-up culture and CBC - Time Time Spent: 50 to 70 Minutes - Inpatient Certification Medical Necessity: Need Close Monitoring Due to Risk of Patient Decompensation
[2018-05-24 05:47] LABS: RETICULOCYTE COUNT (AUTO) 1.87 % (0.66-2.85)
[2018-05-24] MEDS: LEVOTHYROXINE SODIUM 0.05 MG TABLET PO SCH (06:33)
[2018-05-24] MEDS: HEPARIN SOD (PORCINE) 5,000 UNIT/ML 1 ML SYRINGE SUBCUT SCH ×2 (06:33→14:00)
[2018-05-24 08:14] LABS: IRON(TIBC) 18.1 ug/dL (37-170)
[2018-05-24 08:31] LABS: FOLATE > 20.00 ng/mL (>2.76)
[2018-05-24] MEDS: HYDRALAZINE HCL 50 MG TABLET PO SCH ×3 (09:43→18:18)
[2018-05-24] MEDS: CEFTRIAXONE 1 GM/D5W RTU 1 GM/50 ML RTUPB IV SCH (09:44)
[2018-05-24] MEDS: DOCUSATE SODIUM 100 MG CAPSULE PO SCH ×2 (09:44→18:15)
[2018-05-24 10:09] LABS: INTERNATIONAL RATION (INR) 1.05; PROTHROMBIN TIME 14.2 SEC (11.4-15.4)
[2018-05-24 10:10] LABS: PARTIAL THROMBOPLASTIN TIME 65.9 SEC (23.5-35.8)
[2018-05-24] MEDS ORDERED: LEVALBUTEROL HCL NEB 1.25 MG/3 ML AMPUL NEB PRN (15:14)
[2018-05-24] MEDS ORDERED: GUAIFENESIN SYRP 200 MG/10 ML UDC PO PRN (15:14)
--- NOTE | 2018-05-24 15:16 | PDOC PROGRESS REPORT ---
Subjective Progress Note for:: 05/24/18 Subjective:: MATEO FRYE is a 83 year old female with past medical history of hypertension, stage II chronic kidney disease and recently diagnosed hepatic mass who was admitted 05/23/18 for PNA and right side pleural effusion. The patient is seen on morning rounds with her daughter present. She is found sitting upright in bed on room air. She reports continued shortness of breath, though slightly improved from yesterday. However, she has not been ambulatory since admission. She does confirm early satiety, traumatic fatigue, and 25 pound weight loss over the last 6 months. She reports that Dr. Copeland was planning an EGD for Friday. Otherwise, she denies fever, chills, chest pain, cough, vomiting, diarrhea, and constipation. She does confirm abdominal fullness, without pain, and intermittent nausea without emesis. She has no new questions or concerns. Reason For Visit: SOB PLEURAL EFF, LIVER MASS, CKD Physical Exam Vital Signs: Temp Pulse Resp BP Pulse Ox 98.4 F 80 17 149/60 H 93 05/24/18 11:49 05/24/18 14:00 05/24/18 11:49 05/24/18 11:49 05/24/18 11:49 Intake & Output 05/23/18 05/24/18 05/25/18 06:59 06:59 06:59 Intake Total 1870 50 Balance 1870 50 Weight 51 kg General appearance: PRESENT: no acute distress, cooperative, well-developed, well-nourished Head exam: PRESENT: atraumatic, normocephalic Eye exam: PRESENT: conjunctiva pink, EOMI, PERRLA. ABSENT: scleral icterus Mouth exam: PRESENT: moist, tongue midline Neck exam: ABSENT: carotid bruit, JVD, lymphadenopathy, thyromegaly Respiratory exam: PRESENT: clear to auscultation aye, decreased breath sounds - Decreased right middle and right lower lobes, symmetrical, unlabored. ABSENT: rales, rhonchi, wheezes Cardiovascular exam: PRESENT: RRR. ABSENT: diastolic murmur, rubs, systolic murmur Pulses: PRESENT: normal dorsalis pedis pul Vascular exam: PRESENT: normal capillary refill GI/Abdominal exam: PRESENT: normal bowel sounds, soft, tenderness - RUQ. ABSENT: distended, guarding, mass, organolmegaly, rebound Rectal exam: PRESENT: deferred Extremities exam: PRESENT: full ROM. ABSENT: calf tenderness, clubbing, pedal edema Neurological exam: PRESENT: alert, awake, oriented to person, oriented to place, oriented to time, oriented to situation, CN II-XII grossly intact. ABSENT: motor sensory deficit Psychiatric exam: PRESENT: appropriate affect, normal mood. ABSENT: homicidal ideation, suicidal ideation Skin exam: PRESENT: dry, intact, warm. ABSENT: cyanosis, rash Results Laboratory Results: 05/24/18 02:43 05/24/18 02:43 05/23/18 05/23/18 05/23/18 18:42 18:42 18:42 WBC 7.6 RBC 3.45 L Hgb 10.9 L Hct 31.5 L MCV 91 MCH 31.5 MCHC 34.5 RDW 13.3 Plt Count 385 Seg Neutrophils % 87.2 H Lymphocytes % 6.6 L Monocytes % 5.0 Eosinophils % 0.5 Basophils % 0.7 Absolute Neutrophils 6.7 Absolute Lymphocytes 0.5 Absolute Monocytes 0.4 Absolute Eosinophils 0.0 Absolute Basophils 0.1 Retic Count (auto) Absolute Retic Sodium 136.8 L Potassium 4.4 Chloride 100 Carbon Dioxide 16 L Anion Gap 21 H BUN 25 H Creatinine 1.63 H Est GFR ( Amer) 37 L Est GFR (Non-Af Amer) 30 L Glucose 80 Calcium 10.2 Magnesium 2.0 Iron TIBC % Saturation Ferritin Total Bilirubin 0.9 AST 30 ALT 16 Alkaline Phosphatase 150 H C-Reactive Protein Total Protein 6.9 Albumin 4.3 Vitamin B12 Folate TSH 4.07 Urine Color Urine Appearance Urine pH Ur Specific [place] Urine Protein Urine Glucose (UA) Urine Ketones Urine Blood Urine Nitrite Ur Leukocyte Esterase Urine WBC (Auto) Urine RBC (Auto) 05/23/18 05/23/18 05/23/18 18:42 18:42 18:42 WBC RBC Hgb Hct MCV MCH MCHC RDW Plt Count Seg Neutrophils % Lymphocytes % Monocytes % Eosinophils % Basophils % Absolute Neutrophils Absolute Lymphocytes Absolute Monocytes Absolute Eosinophils Absolute Basophils Retic Count (auto) Absolute Retic Sodium Potassium Chloride Carbon Dioxide Anion Gap BUN Creatinine Est GFR ( Amer) Est GFR (Non-Af Amer) Glucose Calcium Magnesium Iron Cancelled TIBC Cancelled % Saturation Cancelled Ferritin Total Bilirubin AST ALT Alkaline Phosphatase C-Reactive Protein 162.9 H Total Protein Albumin Vitamin B12 Folate TSH Urine Color YELLOW Urine Appearance SLIGHTLY-CLOUDY Urine pH 5.0 Ur Specific [place] 1.017 Urine Protein 30 H Urine Glucose (UA) NEGATIVE Urine Ketones TRACE H Urine Blood MODERATE H Urine Nitrite NEGATIVE Ur Leukocyte Esterase NEGATIVE Urine WBC (Auto) 3 Urine RBC (Auto) 4 05/24/18 05/24/18 05/24/18 02:43 02:43 02:43 WBC 4.8 RBC 2.72 L Hgb 8.4 L D Hct 24.7 L MCV 91 MCH 30.8 MCHC 34.0 RDW 13.1 Plt Count 292 Seg Neutrophils % 82.2 H Lymphocytes % 6.9 L Monocytes % 8.7 Eosinophils % 1.5 Basophils % 0.7 Absolute Neutrophils 3.9 Absolute Lymphocytes 0.3 L Absolute Monocytes 0.4 Absolute Eosinophils 0.1 Absolute Basophils 0.0 Retic Count (auto) 1.87 Absolute Retic 0.050 Sodium 136.0 L Potassium 4.0 Chloride 105 Carbon Dioxide 14 L Anion Gap 17 BUN 23 H Creatinine 1.54 H Est GFR ( Amer) 39 L Est GFR (Non-Af Amer) 32 L Glucose 81 Calcium 9.3 Magnesium Iron TIBC % Saturation Ferritin Total Bilirubin 0.6 AST 20 ALT 22 Alkaline Phosphatase 108 C-Reactive Protein Total Protein 5.8 L Albumin 3.4 L Vitamin B12 Folate TSH Urine Color Urine Appearance Urine pH Ur Specific [place] Urine Protein Urine Glucose (UA) Urine Ketones Urine Blood Urine Nitrite Ur Leukocyte Esterase Urine WBC (Auto) Urine RBC (Auto) 05/24/18 05/24/18 02:43 07:45 WBC RBC Hgb Hct MCV MCH MCHC RDW Plt Count Seg Neutrophils % Lymphocytes % Monocytes % Eosinophils % Basophils % Absolute Neutrophils Absolute Lymphocytes Absolute Monocytes Absolute Eosinophils Absolute Basophils Retic Count (auto) Absolute Retic Sodium Potassium Chloride Carbon Dioxide Anion Gap BUN Creatinine Est GFR ( Amer) Est GFR (Non-Af Amer) Glucose Calcium Magnesium Iron Cancelled 18.1 L TIBC Cancelled 229 L % Saturation Cancelled 8 Ferritin 600.00 H Total Bilirubin AST ALT Alkaline Phosphatase C-Reactive Protein Total Protein Albumin Vitamin B12 490.0 Folate > 20.00 TSH Urine Color Urine Appearance Urine pH Ur Specific [place] Urine Protein Urine Glucose (UA) Urine Ketones Urine Blood Urine Nitrite Ur Leukocyte Esterase Urine WBC (Auto) Urine RBC (Auto) Impressions: Chest X-Ray 05/23/18 18:01 IMPRESSION: Bilateral pleural effusions and diffuse patchy airspace opacities suggests multi lobar pneumonia. Recommend consideration of atypical organisms in treatment planning. Chest CT 05/23/18 21:03 IMPRESSION: Bilateral pleural effusions. Bilateral lower lobe consolidation/atelectasis, suspicious for pneumonia. Cardiomegaly with probable pulmonary vascular congestion. Possible interstitial edema. Hazy upper lobe infiltrate. Diagnostic possibilities include pulmonary edema and pneumonia. Low density liver lesions. Metastatic disease cannot be excluded. Nonemergent ultrasound might prove helpful for further evaluation. TECHNICAL DOCUMENTATION: Quality ID # [id number]: Final reports with documentation of one or more dose reduction techniques (e.g., Automated exposure control, adjustment of the mA and/or kV according to patient size, use of iterative reconstruction technique) copyright 2011 [employer]- All Rights Reserved Assessment & Plan - Diagnosis (1) Pneumonia Qualifiers: Pneumonia type: due to unspecified organism Laterality: bilateral Lung location: lower lobe of lung Qualified Code(s): J18.1 - Lobar pneumonia, unspecified organism Is this a current diagnosis for this admission?: Yes Plan: The patient was admitted with shortness of breath. CXR demonstrated Bilateral pleural effusions with diffuse patchy airspace opacities adjusting a multilobar pneumonia. Follow-up chest CT revealed bilateral pleural effusions with bilateral lower lobe consolidation/atelectasis suspicious for pneumonia with cardiomegaly and probable pulmonary vascular congestion. Probable interstitial edema. Hazy upper lobe infiltrate suggestive of pulmonary edema versus pneumonia. And a low-density liver lesion; metastatic disease cannot be ruled out. The patient is admitted to medical floor and continuous cardiac telemetry. She is provided supplemental oxygen as needed to maintain saturations >89% She is provided as needed nebulizer treatments. She has been empirically placed on IV azithromycin and Rocephin. Robitussin as needed. Incentive spirometer to bedside. (2) Liver mass Is this a current diagnosis for this admission?: Yes Plan: Recent outpatient abdominal ultrasound reportedly revealed a liver mass; has not had full diagnostic work up yet. EGD was planned for Friday with Dr. Copeland. LFTs unremarkable; Carcinoembryonic Ag 3.2, Histone IgG is pending. Will attempt to obtain U/S report. Dr. Copeland is consulted. Consider further imaging and Oncology consultation. Will discuss with interventional radiology tomorrow to see if mass is amenable to needle biopsy. (3) Anemia Qualifiers: Anemia type: iron deficiency Iron deficiency anemia type: unspecified iron deficiency Qualified Code(s): D50.9 - Iron deficiency anemia, unspecified Is this a current diagnosis for this admission?: Yes Plan: Hbg has trended down; 10.9->8.4 (has received 2 L IVF) Baseline appears to be 11 Start multivitamin and iron supplementation. Considering Heme/Onc consultation. (4) Chronic kidney disease Qualifiers: Chronic kidney disease stage: stage 3 (moderate) Qualified Code(s): N18.3 - Chronic kidney disease, stage 3 (moderate) Is this a current diagnosis for this admission?: Yes Plan: Patient's PCP is Dr. Ashby. Admitted with Cr 1.54; appears to be at baseline. Will avoid nephrotoxic medications as able. Dr. Ashby is consulted. Monitor daily chemistries. (5) Pleural effusion, right Is this a current diagnosis for this admission?: Yes Plan: Unclear etiology; inflammatory versus malignant versus pneumonia. Liver mass evaluation as above. Cultures and antibiotics for pneumonia as above. Thoracentesis is pending. Resume patient's home dose furosemide. Dr. Bower has been consulted. - Time Time Spent with patient: 15-24 minutes Medications reviewed and adjusted accordingly: Yes Anticipated discharge: Home with Homehealth - Inpatient Certification Based on my medical assessment, after consideration of the patient's nancy rbidities, presenting symptoms, or acuity I expect that the services needed warrant INPATIENT care.: Yes I certify that my determination is in accordance with my understanding of Medicare's requirements for reasonable and necessary INPATIENT services [42 CFR 412.3e].: Yes Medical Necessity: Need Close Monitoring Due to Risk of Patient Decompensation, Risk of Diagnosis Which Will Require Inpatient Eval/Care/Monitoring
--- NOTE | 2018-05-24 17:12 | ADVANCED CARE ---
- Diagnosis (1) Pneumonia Diagnosis Current: Yes (2) Liver mass Diagnosis Current: Yes (3) Anemia Diagnosis Current: Yes (4) Chronic kidney disease Diagnosis Current: Yes (5) Pleural effusion, right Diagnosis Current: Yes Attendance: The patient and her daughter. Resuscitation Status: Full Code Discussion: Reviewed with patient her current diagnosis and plans for further evaluation. She was asked if she had thought about, or discussed with her family, what she would want done if she were to become critically ill in the future. The patient stated that she "had always been healthy and so had never had to think about it." She did confirm that if the evaluation of her liver mass revealed malignancy that she would want to know about it and that she would want to meet with oncology to discuss potential treatment options including surgery, chemotherapy, and radiation. She did tell me that her breathing felt much better, but that she would us to do but if it was necessary in order to help her recover. She did state she would not want to "live on life support," but would desire short-term interventions if there was a reasonable prognosis/probability of coming off of the ventilator. She did not specify what timeframe she considered to be reasonable. She does confirm that she would want to have CPR in the event of a sudden cardiac or respiratory event. She and her daughter were encouraged to continue discussing this as her daughter was identified as the designated surrogate decision-maker. The patient remains a FULL CODE. Care Planning Goals: FULL CODE. Patient's goals: Complete evaluation of the liver mass and pleural effusion, treatment for pneumonia, and discharge to home. Time Spent: 20 minutes
[2018-05-24] MEDS ORDERED: (PENDING PHARMACY ID) (Omega-3 Fatty Acids/Fish Oil [Fish Oil 1,000 Mg Capsule] 1 EACH) PO SCH (18:00)
[2018-05-24] MEDS: OMEGA-3 ACID ETHYL ESTERS 1 GM CAPSULE PO SCH (18:14)
[2018-05-24] MEDS: AZITHROMYCIN 500 MG in DEXTROSE 5%-WATER 250 ML IV SCH (18:22)
[2018-05-25] MEDS: LEVOTHYROXINE SODIUM 0.05 MG TABLET PO SCH (05:50)
[2018-05-25 05:54] LABS: HEMATOCRIT 23.2 % (36.0-47.0); HEMOGLOBIN 8.1 g/dL (12.0-15.5); MEAN CORPUSCULAR HEMOGLOBIN 31.2 pg (27.0-33.4); MEAN CORPUSCULAR HGB CONC 34.8 g/dL (32.0-36.0); MEAN CORPUSCULAR VOLUME 90 fl (80-97); PLATELET COUNT 302 10^3/uL (150-450); RED BLOOD COUNT 2.59 10^6/uL (3.72-5.28); RED CELL DISTRIBUTION WIDTH 13.1 % (11.5-14.0); WHITE BLOOD COUNT 5.4 10^3/uL (4.0-10.5)
[2018-05-25 06:19] LABS: ALANINE AMINOTRANSFERASE 18 U/L (9-52); ALBUMIN 2.8 g/dL (3.5-5.0); ALKALINE PHOSPHATASE 94 U/L (38-126); ANION GAP 12 (5-19); ASPARTATE AMINO TRANSFERASE 19 U/L (14-36); BILIRUBIN,DIRECT 0.4 mg/dL (0.0-0.4); BILIRUBIN,TOTAL 0.4 mg/dL (0.2-1.3); BLOOD UREA NITROGEN 22 mg/dL (7-20); CARBON DIOXIDE 19 mmol/L (22-30); CHLORIDE 104 mmol/L (98-107); GLUCOSE 107 mg/dL (75-110); SODIUM 134.5 mmol/L (137-145)
[2018-05-25] MEDS: DOCUSATE SODIUM 100 MG CAPSULE PO SCH ×3 (09:50→17:14)
[2018-05-25] MEDS: OMEGA-3 ACID ETHYL ESTERS 1 GM CAPSULE PO SCH ×2 (10:01→17:17)
[2018-05-25] MEDS: MULTIVITAMIN TABLET PO SCH (10:02)
[2018-05-25] MEDS: FERROUS SULFATE 325 MG TABLET PO SCH (10:02)
[2018-05-25] MEDS: HYDRALAZINE HCL 50 MG TABLET PO SCH ×2 (10:02→17:14)
[2018-05-25] MEDS: FUROSEMIDE 20 MG TABLET PO SCH (10:02)
[2018-05-25] MEDS: FENOFIBRATE NANOCRYSTALLIZED 48 MG TABLET PO SCH (10:03)
[2018-05-25] MEDS: CEFTRIAXONE 1 GM/D5W RTU 1 GM/50 ML RTUPB IV SCH (10:03)
[2018-05-25] MEDS ORDERED: DEXTROSE 40% GEL 15 GM TUBE PO PRN ×2 (14:10)
[2018-05-25] MEDS ORDERED: GLUCAGON,HUMAN RECOMB 1 MG INJ SUBCUT PRN (14:10)
[2018-05-25] MEDS ORDERED: DEXTROSE 50%-WATER 25 GM/50 ML DISP.SYRIN IV PRN ×2 (14:10)
--- NOTE | 2018-05-25 14:17 | PDOC PROGRESS REPORT ---
Subjective Progress Note for:: 05/25/18 Subjective:: MATEO FRYE is a 83 year old female with past medical history of hypertension, stage II chronic kidney disease and recently diagnosed hepatic mass who was admitted 05/23/18 for PNA and right side pleural effusion. The patient is seen on morning rounds with her family present. She is found sitting upright in bed on room air. She reports she is feeling well today and is hopeful to go home soon. She reports her dyspnea is slightly improved; though remains primarily sedentary and has not ambulated much since being admitted. She does confirm continue early satiety and fatigue. She reports 25 pound weight loss over the last 6 months. She reports that Dr. Copeland was planning an EGD for Friday. Otherwise, she denies fever, chills, chest pain, cough, vomiting, diarrhea, and constipation. She does confirm abdominal fullness, without pain, and intermittent nausea without emesis. She has no new questions or concerns. Reason For Visit: PNEUMONIA,PLEURAL EFFUSION Physical Exam Vital Signs: Temp Pulse Resp BP Pulse Ox 98.1 F 79 16 149/57 H 93 05/25/18 12:09 05/25/18 12:09 05/25/18 12:09 05/25/18 12:09 05/25/18 12:09 Intake & Output 05/24/18 05/25/18 05/26/18 06:59 06:59 06:59 Intake Total 1870 1525 50 Balance 1870 1525 50 Weight 51 kg 52 kg General appearance: PRESENT: no acute distress, well-developed, well-nourished Head exam: PRESENT: atraumatic, normocephalic Eye exam: PRESENT: conjunctiva pink, EOMI, PERRLA. ABSENT: scleral icterus Mouth exam: PRESENT: moist, tongue midline Neck exam: ABSENT: carotid bruit, JVD, lymphadenopathy, thyromegaly Respiratory exam: PRESENT: clear to auscultation aye. ABSENT: rales, rhonchi, wheezes Cardiovascular exam: PRESENT: RRR. ABSENT: diastolic murmur, rubs, systolic murmur Vascular exam: PRESENT: normal capillary refill GI/Abdominal exam: PRESENT: normal bowel sounds, soft, tenderness - RUQ. ABSENT: distended, guarding, mass, organolmegaly, rebound Rectal exam: PRESENT: deferred Extremities exam: PRESENT: full ROM. ABSENT: calf tenderness, clubbing, pedal edema Neurological exam: PRESENT: alert, awake, oriented to person, oriented to place, oriented to time, oriented to situation, CN II-XII grossly intact. ABSENT: motor sensory deficit Psychiatric exam: PRESENT: appropriate affect, normal mood. ABSENT: homicidal ideation, suicidal ideation Skin exam: PRESENT: dry, intact, warm. ABSENT: cyanosis, rash Results Laboratory Results: 05/25/18 04:50 05/25/18 04:50 05/25/18 05/25/18 04:50 04:50 WBC 5.4 RBC 2.59 L Hgb 8.1 L Hct 23.2 L MCV 90 MCH 31.2 MCHC 34.8 RDW 13.1 Plt Count 302 Sodium 134.5 L Potassium 4.0 Chloride 104 Carbon Dioxide 19 L Anion Gap 12 BUN 22 H Creatinine 1.37 H Est GFR ( Amer) 45 L Est GFR (Non-Af Amer) 37 L Glucose 107 Calcium 9.0 Total Bilirubin 0.4 AST 19 ALT 18 Alkaline Phosphatase 94 Total Protein 5.0 L Albumin 2.8 L Impressions: Chest X-Ray 05/23/18 18:01 IMPRESSION: Bilateral pleural effusions and diffuse patchy airspace opacities suggests multi lobar pneumonia. Recommend consideration of atypical organisms in treatment planning. Chest CT 05/23/18 21:03 IMPRESSION: Bilateral pleural effusions. Bilateral lower lobe consolidation/atelectasis, suspicious for pneumonia. Cardiomegaly with probable pulmonary vascular congestion. Possible interstitial edema. Hazy upper lobe infiltrate. Diagnostic possibilities include pulmonary edema and pneumonia. Low density liver lesions. Metastatic disease cannot be excluded. Nonemergent ultrasound might prove helpful for further evaluation. TECHNICAL DOCUMENTATION: Quality ID # [id number]: Final reports with documentation of one or more dose reduction techniques (e.g., Automated exposure control, adjustment of the mA and/or kV according to patient size, use of iterative reconstruction technique) copyright 2011 [employer]- All Rights Reserved Assessment & Plan - Diagnosis (1) Pneumonia Qualifiers: Pneumonia type: due to unspecified organism Laterality: bilateral Lung location: lower lobe of lung Qualified Code(s): J18.1 - Lobar pneumonia, unspecified organism Is this a current diagnosis for this admission?: Yes Plan: Improved; maintaining saturations on room air while at rest. CXR demonstrated Bilateral pleural effusions with diffuse patchy airspace opacities adjusting a multilobar pneumonia. Follow-up chest CT revealed bilateral pleural effusions with bilateral lower lobe consolidation/atelectasis suspicious for pneumonia with cardiomegaly and probable pulmonary vascular congestion. Probable interstitial edema. Hazy upper lobe infiltrate suggestive of pulmonary edema versus pneumonia. And a low-density liver lesion; metastatic disease cannot be ruled out. The patient is admitted to medical floor and continuous cardiac telemetry. She is provided supplemental oxygen as needed to maintain saturations >89% She is provided as needed nebulizer treatments. She has been empirically placed on IV azithromycin and Rocephin. Will discontinue Rocephin today as she has a nml WBC, has been afebrile >48 hours with initial negative cultures. Continue azithromycin for now. Robitussin as needed. Incentive spirometer to bedside. (2) Liver mass Is this a current diagnosis for this admission?: Yes Plan: Recent outpatient abdominal ultrasound reportedly revealed a liver mass; has not had full diagnostic work up yet. LFTs unremarkable; Carcinoembryonic Ag 3.2, Histone IgG is pending. Dr. Copeland is consulted. Spoke w/ Dr. Copeland today. Plans for bowel prep tonight and EGD/Colonoscopy tomorrow. Previous colonoscopy showed colitis vs. iechemic bowel; now some concern this may have been early indications of malignancy. Consider further imaging and Oncology consultation. (3) Anemia Qualifiers: Anemia type: iron deficiency Iron deficiency anemia type: unspecified iron deficiency Qualified Code(s): D50.9 - Iron deficiency anemia, unspecified Is this a current diagnosis for this admission?: Yes Plan: Hbg has trended down; 10.9->8.4-> 8.1 (has received 3.5 L IVF) Baseline appears to be 11 Start multivitamin and iron supplementation. Considering Heme/Onc consultation. (4) Chronic kidney disease Qualifiers: Chronic kidney disease stage: stage 3 (moderate) Qualified Code(s): N18.3 - Chronic kidney disease, stage 3 (moderate) Is this a current diagnosis for this admission?: Yes Plan: Patient's PCP is Dr. Ashby. Admitted with Cr 1.54-> 1.37; appears to be at baseline. Will avoid nephrotoxic medications as able. Dr. Ashby is consulted. Monitor daily chemistries. (5) Pleural effusion, right Is this a current diagnosis for this admission?: Yes Plan: Unclear etiology; inflammatory versus malignant versus pneumonia. Liver mass evaluation as above. Cultures and antibiotics for pneumonia as above. Thoracentesis is planned for today with C&S and cytology follow up. Resume patient's home dose furosemide. Dr. Bower has been consulted. - Time Time Spent with patient: 25-34 minutes Medications reviewed and adjusted accordingly: Yes Anticipated discharge: Home
--- NOTE | 2018-05-25 14:32 | RADIOLOGY REPORT (SQ) ---
EXAM DESCRIPTION: CHEST SINGLE VIEW COMPLETED DATE/TIME: 05/25/2018 2:11 pm REASON FOR STUDY: S/P RT THORACENTESIS COMPARISON: 05/23/2018 EXAM PARAMETERS: NUMBER OF VIEWS: One view. TECHNIQUE: Single frontal radiographic view of the chest acquired. RADIATION DOSE: NA LIMITATIONS: None. FINDINGS: LUNGS AND PLEURA: Small right pleural effusion. There appears to be some fluid in the fis sure. Small left pleural effusion. Increased opacification in the retrocardiac area on the left. N o pneumothorax. MEDIASTINUM AND HILAR STRUCTURES: No masses. Contour normal. HEART AND VASCULAR STRUCTURES: Heart normal in size. Normal vasculature. BONES: No acute findings. HARDWARE: None in the chest. OTHER: No other significant finding. IMPRESSION: No pneumothorax. Small pleural effusions. Increased total opacification the left base suggesting airspace disease, atelectasis versus pneumonia. TECHNICAL DOCUMENTATION: JOB ID: [id number] [employer]- All Rights Reserved Reading location - IP/workstation name: [email or web address]
--- NOTE | 2018-05-25 14:48 | RADIOLOGY REPORT (SQ) ---
EXAM DESCRIPTION: U/S THORACENTESIS WITH IMAGING COMPLETED DATE/TIME: 05/25/2018 2:29 pm REASON FOR STUDY: Rt plueral effusion D46.4 REFRACTORY ANEMIA, UNSPECIFIED J15.9 UNSPECIFIED BACTE RIAL PNEUMONIA COMPARISON: None. LIMITATIONS: None. PROCEDURE: Procedure, risks, benefit, and alternative explained to patient who then gave written con sent. The posterior right chest wall was marked using ultrasound guidance. A time-out was called fo r correct marking verification. Chest prepped and draped using sterile technique. Local anesthesia a chieved using 3.0 ml of 1% lidocaine injection. A 6fr Safe-T- Centesis set was introduced into the r ight pleural space. Fluid was aspirated. The catheter was removed and the entry site was covered wi th sterile bandage. No immediate complications noted. Images acquired during the procedure were stored on PACS. FINDINGS: ENTRY SITE: posterior right chest. FLUID VOLUME: 650 CC FLUID ANALYSIS: Straw. OTHER: Fluid sent to the lab for testing. IMPRESSION: SUCCESSFUL THORACENTESIS USING ULTRASOUND GUIDANCE. COMMENT: Patient medication list reviewed: Yes- Quality ID# [id number]:Eligible professional attests to doc umenting in the medical record they obtained, updated, or reviewed the patient's current medications. TECHNICAL DOCUMENTATION: JOB ID: [id number] [employer]- All Rights Reserved Reading location - IP/workstation name: [email or web address]
[2018-05-25 15:23] LABS: FLUID APPEARANCE CLEAR; FLUID COLOR YELLOW; FLUID SOURCE LUNG; FLUID TYPE PLEURAL; FLUID VISCOSITY LIQUID
--- NOTE | 2018-05-25 16:31 | RADIOLOGY REPORT (SQ) ---
EXAM DESCRIPTION: CHEST SINGLE VIEW COMPLETED DATE/TIME: 05/25/2018 4:25 pm REASON FOR STUDY: S/P RT THORACENTESIS - 2 HR COMPARISON: 05/25/2018 EXAM PARAMETERS: NUMBER OF VIEWS: One view. TECHNIQUE: Single frontal radiographic view of the chest acquired. RADIATION DOSE: NA LIMITATIONS: None. FINDINGS: LUNGS AND PLEURA: No evidence of pneumothorax. Stable bilateral pleural effusions. Stabl e linear opacity in the right lung base, consistent with atelectasis. No new airspace consolidations . MEDIASTINUM AND HILAR STRUCTURES: No change from prior HEART AND VASCULAR STRUCTURES: Unchanged BONES: No acute findings. HARDWARE: None in the chest. OTHER: No other significant finding. IMPRESSION: No pneumothorax. Stable bilateral pleural effusions. TECHNICAL DOCUMENTATION: JOB ID: [id number] [employer]- All Rights Reserved Reading location - IP/workstation name: [email or web address]
[2018-05-25] MEDS: AZITHROMYCIN 500 MG in DEXTROSE 5%-WATER 250 ML IV SCH (17:14)
[2018-05-25] MEDS ORDERED: PEG 3350/NA SULF,BICARB,CL/KCL 4000 ML PO ONE (18:00)
[2018-05-26] MEDS: LEVOTHYROXINE SODIUM 0.05 MG TABLET PO SCH (06:23)
[2018-05-26 07:12] LABS: HEMATOCRIT 24.1 % (36.0-47.0); HEMOGLOBIN 8.3 g/dL (12.0-15.5); MEAN CORPUSCULAR HGB CONC 34.4 g/dL (32.0-36.0); MEAN CORPUSCULAR VOLUME 90 fl (80-97); PLATELET COUNT 289 10^3/uL (150-450); RED BLOOD COUNT 2.68 10^6/uL (3.72-5.28); RED CELL DISTRIBUTION WIDTH 13.3 % (11.5-14.0); WHITE BLOOD COUNT 4.7 10^3/uL (4.0-10.5)
[2018-05-26 07:19] LABS: ALANINE AMINOTRANSFERASE 18 U/L (9-52); ALKALINE PHOSPHATASE 96 U/L (38-126); ANION GAP 13 (5-19); ASPARTATE AMINO TRANSFERASE 22 U/L (14-36); BILIRUBIN,DIRECT 0.4 mg/dL (0.0-0.4); BILIRUBIN,TOTAL 0.5 mg/dL (0.2-1.3); BLOOD UREA NITROGEN 17 mg/dL (7-20); CALCIUM 9.1 mg/dL (8.4-10.2); CARBON DIOXIDE 20 mmol/L (22-30); CHLORIDE 100 mmol/L (98-107); GLUCOSE 93 mg/dL (75-110); POTASSIUM 3.9 mmol/L (3.6-5.0); SODIUM 133.1 mmol/L (137-145); TOTAL PROTEIN 5.2 g/dL (6.3-8.2)
[2018-05-26] MEDS: HYDRALAZINE HCL 50 MG TABLET PO SCH ×2 (09:43→16:59)
[2018-05-26] MEDS: DOCUSATE SODIUM 100 MG CAPSULE PO SCH ×2 (09:44→16:59)
[2018-05-26] MEDS: OMEGA-3 ACID ETHYL ESTERS 1 GM CAPSULE PO SCH ×2 (09:44→16:59)
[2018-05-26] MEDS: FENOFIBRATE NANOCRYSTALLIZED 48 MG TABLET PO SCH (09:44)
[2018-05-26] MEDS: FERROUS SULFATE 325 MG TABLET PO SCH (09:44)
[2018-05-26] MEDS: FUROSEMIDE 20 MG TABLET PO SCH (09:44)
[2018-05-26] MEDS: MULTIVITAMIN TABLET PO SCH (09:44)
[2018-05-26] MEDS ORDERED: DIPHENHYDRAMINE HCL 50 MG/ML VIAL ONE (11:32)
[2018-05-26] MEDS ORDERED: ONDANSETRON HCL INJ/PF 4 MG/2 ML SDV ONE (11:32)
[2018-05-26] MEDS ORDERED: FLUMAZENIL INJ 0.5 MG/5 ML VIAL ONE (11:33)
[2018-05-26] MEDS ORDERED: GLUCAGON,HUMAN RECOMB 1 MG INJ ONE (11:33)
[2018-05-26] MEDS ORDERED: FENTANYL CITRATE INJ/PF 100 MCG/2 ML AMPUL ONE (11:33)
[2018-05-26] MEDS ORDERED: EPINEPHRINE INJ 1 MG/10 ML DISP.SYRIN ONE (11:33)
[2018-05-26] MEDS ORDERED: NALOXONE HCL INJ/PF 0.4 MG/1 ML SDV ONE (11:33)
--- NOTE | 2018-05-26 12:20 | PDOC CONSULTATION ---
Consultation Consult Date: 05/25/18 Attending physician:: YVROSE LIRA Consult reason:: abnormal, CT, weight loss, anorexia, follow up colon ulcer/ colitis History of Present Illness Admission Date/PCP: 05/24/18 14:57 ELENA SILVA MD History of Present Illness: MATEO FRYE is a 83 year old female I have been asked to see this patient she had been seen about 1 week ago in the office I had first seen the patient late last year and she had a colonoscopy done as inpatient patient underwent colonoscopy she appeared to have some evidence of ischemic colitis on the right side of the colon biopsies at that time was negative for malignancy I had recommended a follow up colonoscopy and when I saw her in the office, she declined that follow up colonoscopy however she was having weight loss and anorexia and was scheduled as an outpatient for an EGD in a couple of days patient however over the weekend for admitted she had a pleural effusion and on CT scan was noted to have a abnormal liver, the findings are non specific but radiologist is questioning a possible metastatic lesion she will now need a colonoscopy in addition to her EGD if there is no healing of the lesion, then possibly that could be the source of the liver lesion will get this done as an inpatient patient is willing to proceed Past Medical History Cardiac Medical History: Reports: Hypertension - ON MEDS TOPROL Denies: Coronary Artery Disease, Myocardial Infarction Pulmonary Medical History: Reports: Pneumonia - Hx of, 1984 Denies: Asthma, Bronchitis, Chronic Obstructive Pulmonary Disease (COPD) EENT Medical History: Reports: Cataracts Neurological Medical History: Denies: Seizures Endocrine Medical History: Reports: Hypothyroidism GI Medical History: Denies: Hepatitis, Hiatal Hernia, Peptic Ulcer Disease Musculoskeltal Medical History: Comment Only: Arthritis - hips Skin Medical History: Denies: Eczema, Psoriasis Psychiatric Medical History: Denies: Alcohol Dependency, Tobacco Dependency Traumatic Medical History: Denies: Traumatic Brain Injury Hematology: Reports: Anemia - BORDERLINE NO MEDS Denies: Sickle Cell Disease Past Surgical History Past Surgical History: Denies: Amputation, Mastectomy, Pacemaker Social History Lives with: Family Smoking Status: Never Smoker Frequency of Alcohol Use: None Hx Recreational Drug Use: No Drugs: None Hx Prescription Drug Abuse: No - Advance Directive Resuscitation Status: Full Code Family History Family History: Malignancy - Father with pancreatic cancer Parental Family History Reviewed: Yes Children Family History Reviewed: Unknown Sibling(s) Family History Reviewed.: Unknown Medication/Allergy Home Medications: Allopurinol [Zyloprim 100 mg Tablet] 100 mg PO DAILY 12/12/17 Cholecalciferol (Vitamin D3) [Vitamin D3] 400 unit PO DAILY 12/12/17 Clonidine [Catapres-Tts 1 (0.1 mg/24 Hr) Transderm Patch] 1 patch TD .QWEEKLY 12/12/17 Fenofibrate Nanocrystallized [Fenofibrate] 48 mg PO DAILY 12/12/17 Levothyroxine Sodium 50 mcg PO DAILY 12/12/17 [place]-3 Fatty Acids/Fish Oil [Fish Oil 1,000 mg Capsule] 1 each PO BID 12/12/17 Furosemide [Lasix 20 mg Tablet] 20 mg PO DAILY 05/24/18 Hydralazine HCl [Apresoline 50 mg Tablet] 50 mg PO Q12 05/24/18 Iron 65 65 mg PO DAILY 05/24/18 Allergies/Adverse Reactions: No Known Allergies Allergy (Verified 05/23/18 17:26) Review of Systems Constitutional: ABSENT: fever(s), headache(s), night sweats, weakness Eyes: ABSENT: visual disturbances Ears: ABSENT: hearing changes Nose, Mouth, and Throat: ABSENT: mouth pain, sore throat Cardiovascular: ABSENT: edema, orthropnea, palpitations Respiratory: ABSENT: dyspnea, hemoptysis Gastrointestinal: ABSENT: dysphagia, hematemesis, melena Genitourinary: ABSENT: dysuria, hematuria Musculoskeletal: ABSENT: deformity, joint swelling Integumentary: ABSENT: lesions, pruritus Neurological: ABSENT: syncope, tingling, tremor(s), vertigo Endocrine: ABSENT: polydipsia, polyphagia, polyuria Hematologic/Lymphatic: ABSENT: easy bruising Physical Exam Vital Signs: Temp Pulse Resp BP Pulse Ox 97.6 F 79 16 150/58 H 95 05/26/18 10:15 05/26/18 10:15 05/26/18 10:15 05/26/18 10:15 05/26/18 10:15 Intake & Output 05/25/18 05/26/18 05/27/18 06:59 06:59 06:59 Intake Total 1525 1018 Balance 1525 1018 Weight 52 kg 51.3 kg General appearance: PRESENT: no acute distress, thin Head exam: PRESENT: atraumatic, normocephalic Eye exam: PRESENT: EOMI, PERRLA. ABSENT: nystagmus, scleral icterus Mouth exam: PRESENT: moist, neck supple Throat exam: ABSENT: tonsillar exudate, tonsillogmegaly Neck exam: ABSENT: meningismus, tenderness, thyromegaly Respiratory exam: PRESENT: symmetrical, unlabored. ABSENT: tachypnea, wheezes Cardiovascular exam: PRESENT: RRR, +S1, +S2 GI/Abdominal exam: PRESENT: soft. ABSENT: rebound, tenderness Extremities exam: ABSENT: joint swelling Musculoskeletal exam: PRESENT: full ROM Neurological exam: PRESENT: oriented to time, oriented to situation, CN II-XII grossly intact Focused psych exam: ABSENT: restlessness Skin exam: PRESENT: normal color. ABSENT: mottled, pallor, urticaria, vesicles Results Laboratory Results: 05/26/18 05:40 05/26/18 05:40 05/25/18 05/25/18 05/25/18 13:00 13:46 13:46 WBC RBC Hgb Hct MCV MCH MCHC RDW Plt Count Sodium Potassium Chloride Carbon Dioxide Anion Gap BUN Creatinine Est GFR ( Amer) Est GFR (Non-Af Amer) Glucose Calcium Total Bilirubin AST ALT Alkaline Phosphatase Total Protein 5.4 L Albumin Fluid Type Fluid Source Fluid Color Fluid Appearance Fluid Viscosity Fluid WBC Fluid RBC Fluid Glucose Fluid Total Protein 2.8 Fluid LDH Fluid Amylase 9 05/25/18 05/25/18 05/25/18 13:46 13:46 13:46 WBC RBC Hgb Hct MCV MCH MCHC RDW Plt Count Sodium Potassium Chloride Carbon Dioxide Anion Gap BUN Creatinine Est GFR ( Amer) Est GFR (Non-Af Amer) Glucose Calcium Total Bilirubin AST ALT Alkaline Phosphatase Total Protein Albumin Fluid Type PLEURAL Fluid Source LUNG Fluid Color YELLOW Fluid Appearance CLEAR Fluid Viscosity LIQUID Fluid WBC 232 Fluid RBC 198 Fluid Glucose 122 Fluid Total Protein Fluid LDH 76 Fluid Amylase 05/26/18 05/26/18 05:40 05:40 WBC 4.7 RBC 2.68 L Hgb 8.3 L Hct 24.1 L MCV 90 MCH 31.0 MCHC 34.4 RDW 13.3 Plt Count 289 Sodium 133.1 L Potassium 3.9 Chloride 100 Carbon Dioxide 20 L Anion Gap 13 BUN 17 Creatinine 1.30 H Est GFR ( Amer) 48 L Est GFR (Non-Af Amer) 39 L Glucose 93 Calcium 9.1 Total Bilirubin 0.5 AST 22 ALT 18 Alkaline Phosphatase 96 Total Protein 5.2 L Albumin 3.0 L Fluid Type Fluid Source Fluid Color Fluid Appearance Fluid Viscosity Fluid WBC Fluid RBC Fluid Glucose Fluid Total Protein Fluid LDH Fluid Amylase Impressions: Chest CT 05/23/18 21:03 IMPRESSION: Bilateral pleural effusions. Bilateral lower lobe consolidation/atelectasis, suspicious for pneumonia. Cardiomegaly with probable pulmonary vascular congestion. Possible interstitial edema. Hazy upper lobe infiltrate. Diagnostic possibilities include pulmonary edema and pneumonia. Low density liver lesions. Metastatic disease cannot be excluded. Nonemergent ultrasound might prove helpful for further evaluation. TECHNICAL DOCUMENTATION: Quality ID # [id number]: Final reports with documentation of one or more dose reduction techniques (e.g., Automated exposure control, adjustment of the mA and/or kV according to patient size, use of iterative reconstruction technique) copyright 2011 [employer] All Rights Reserved Thoracentesis Ultrasound 05/25/18 08:13 IMPRESSION: SUCCESSFUL THORACENTESIS USING ULTRASOUND GUIDANCE. Chest X-Ray 05/25/18 16:00 IMPRESSION: No pneumothorax. Stable bilateral pleural effusions. Assessment & Plan - Diagnosis (1) Weight loss Plan: unclear etiology I had planned to have patient undergo an EGD for the work up as this is associate with her anorexia will perform as an inpatient in conjunction with a colonoscopy Risks, benefits and alternatives are discussed with the patient (2) Anorexia Plan: her appetite has decrease as well and she does admit to some early satiety (3) Liver mass Is this a current diagnosis for this admission?: Yes Plan: patient had abnormal CT scan will now need colonoscopy to follow up on area of colitis/ ulcer on the right side there had been planned follow up colonoscopy but patient had declined to have the procedure done when she was in the office she now with the current findings will need to proceed with the colonoscopy Risks, benefits and alternatives are discussed with the patient in detail further recommendations to follow I have spoken to ms Becerra to update her with respect to the current situation - Time Time Spent: 50 to 70 Minutes
[2018-05-26] MEDS: MIDAZOLAM 2 MG/2 ML INJ ONE ×2 (13:54→14:00)
--- NOTE | 2018-05-26 14:59 | Operative Report ---
Operative Report DATE OF SURGERY: 05/26/18 Operative Report: The risks, benefits and alternatives of the procedure including the risk of bleeding, perforation requiring surgery have been explained to the patient in detail and informed consent has been obtained. The patient is brought back to the endoscopy suite and placed in the left, lateral decubital position. Timeout was called. Conscious sedation medications are provided. Rectal examination is done which did not reveal any masses tears or fissures. An Olympus videoscope was introduced into the patient's rectum. It is carefully advanced all the way to the cecum. Cecum was identified by the usual anatomical landmarks including the ileocecal valve as well as the appendiceal office. Photodocumentation is obtained. Prep was good. The scope was then sequentially pulled back via the various segments of the colon including the ascending colon, hepatic flexure, transverse colon, splenic flexure, descending colon and finally into the rectosigmoid portions of the colon. Retroflexion maneuver was performed. The risks benefits and alternatives of the procedure explained to the patient in detail and informed consent is obtained.A GIF Olympus video scope was inserted into the patient's mouth and hypopharynx, the esophagus is identified intubated and insufflated, the scope was then advanced through the esophagus stomach and duodenum, retroflexion maneuver is done ,the esophagus stomach and first and second portions of the duodenum examined. PREOPERATIVE DIAGNOSIS: Follow-up on colonic ulcer. Anorexia. Weight loss POSTOPERATIVE DIAGNOSIS: Acute ulcers/inflammation noted at the hepatic flexure area no further ulcerations seen. Polyp removed at the hepatic flexure via snare polypectomy and retrieved. Diverticulosis without any evidence of diverticulitis. Internal hemorrhoids. Gastric polyp status post biopsy does have a submucosal portion to it if biopsies are negative she may need endoscopic ultrasound with biopsy. Gastritis status post biopsy rule out Helicobacter pylori. Duodenitis with mild stricturing at the first and second portions of the duodenum status post biopsy OPERATION: Colonoscopy with snare polypectomy. EGD with biopsy SURGEON: YVROSE LIRA ANESTHESIA: Moderate Sedation TISSUE REMOVED OR ALTERED: As noted above. COMPLICATIONS: None. ESTIMATED BLOOD LOSS: None. INTRAOPERATIVE FINDINGS: As noted above. PROCEDURE: Patient tolerated the procedure well. No immediate postprocedure complications are noted. Patient discharged back to her room in good condition. Discharge diet: Regular. Discharge activity: Regular. 2-3-week follow-up to discuss findings. We will wait on the pathology. Family was updated with regards to the findings. Surveillance colonoscopy in 3-5 years
[2018-05-26] MEDS: AZITHROMYCIN 500 MG in DEXTROSE 5%-WATER 250 ML IV SCH (16:59)
--- NOTE | 2018-05-26 19:08 | PDOC PROGRESS REPORT ---
Subjective Progress Note for:: 05/26/18 Subjective:: Sitting resting comfortably waiting for her endoscopies. Reason For Visit: PNEUMONIA,PLEURAL EFFUSION Physical Exam Vital Signs: Temp Pulse Resp BP Pulse Ox 97.9 F 72 16 149/56 H 95 05/26/18 12:14 05/26/18 12:14 05/26/18 12:14 05/26/18 12:14 05/26/18 12:14 Intake & Output 05/25/18 05/26/18 05/27/18 06:59 06:59 06:59 Intake Total 1525 1018 Balance 1525 1018 Weight 52 kg 51.3 kg General appearance: PRESENT: no acute distress, cooperative, well-developed Head exam: PRESENT: normocephalic Eye exam: PRESENT: conjunctiva pale. ABSENT: scleral icterus Mouth exam: PRESENT: dry mucosa, tongue midline Respiratory exam: PRESENT: clear to auscultation aye, symmetrical, unlabored. ABSENT: rales, rhonchi, wheezes Cardiovascular exam: PRESENT: RRR, +S1, +S2, systolic murmur - 2/6 GI/Abdominal exam: PRESENT: normal bowel sounds, soft, tenderness - Slight te nderness in the epigastric area. ABSENT: distended, guarding Rectal exam: PRESENT: deferred Extremities exam: ABSENT: pedal edema Neurological exam: PRESENT: alert, awake, oriented to person, oriented to place, oriented to time Psychiatric exam: PRESENT: appropriate affect. ABSENT: agitated, anxious Focused psych exam: ABSENT: delusional, restlessness Skin exam: PRESENT: dry, warm. ABSENT: rash Results Laboratory Results: 05/26/18 05:40 05/26/18 05:40 05/25/18 05/25/18 05/25/18 13:00 13:46 13:46 WBC RBC Hgb Hct MCV MCH MCHC RDW Plt Count Sodium Potassium Chloride Carbon Dioxide Anion Gap BUN Creatinine Est GFR ( Amer) Est GFR (Non-Af Amer) Glucose Calcium Total Bilirubin AST ALT Alkaline Phosphatase Total Protein 5.4 L Albumin Fluid Type Fluid Source Fluid Color Fluid Appearance Fluid Viscosity Fluid WBC Fluid RBC Fluid Glucose Fluid Total Protein 2.8 Fluid LDH Fluid Amylase 9 05/25/18 05/25/18 05/25/18 13:46 13:46 13:46 WBC RBC Hgb Hct MCV MCH MCHC RDW Plt Count Sodium Potassium Chloride Carbon Dioxide Anion Gap BUN Creatinine Est GFR ( Amer) Est GFR (Non-Af Amer) Glucose Calcium Total Bilirubin AST ALT Alkaline Phosphatase Total Protein Albumin Fluid Type PLEURAL Fluid Source LUNG Fluid Color YELLOW Fluid Appearance CLEAR Fluid Viscosity LIQUID Fluid WBC 232 Fluid RBC 198 Fluid Glucose 122 Fluid Total Protein Fluid LDH 76 Fluid Amylase 05/26/18 05/26/18 05:40 05:40 WBC 4.7 RBC 2.68 L Hgb 8.3 L Hct 24.1 L MCV 90 MCH 31.0 MCHC 34.4 RDW 13.3 Plt Count 289 Sodium 133.1 L Potassium 3.9 Chloride 100 Carbon Dioxide 20 L Anion Gap 13 BUN 17 Creatinine 1.30 H Est GFR ( Amer) 48 L Est GFR (Non-Af Amer) 39 L Glucose 93 Calcium 9.1 Total Bilirubin 0.5 AST 22 ALT 18 Alkaline Phosphatase 96 Total Protein 5.2 L Albumin 3.0 L Fluid Type Fluid Source Fluid Color Fluid Appearance Fluid Viscosity Fluid WBC Fluid RBC Fluid Glucose Fluid Total Protein Fluid LDH Fluid Amylase Impressions: Chest CT 05/23/18 21:03 IMPRESSION: Bilateral pleural effusions. Bilateral lower lobe consolidation/atelectasis, suspicious for pneumonia. Cardiomegaly with probable pulmonary vascular congestion. Possible interstitial edema. Hazy upper lobe infiltrate. Diagnostic possibilities include pulmonary edema and pneumonia. Low density liver lesions. Metastatic disease cannot be excluded. Nonemergent ultrasound might prove helpful for further evaluation. TECHNICAL DOCUMENTATION: Quality ID # 436: Final reports with documentation of one or more dose reduction techniques (e.g., Automated exposure control, adjustment of the mA and/or kV according to patient size, use of iterative reconstruction technique) copyright 2011 [employer]- All Rights Reserved Thoracentesis Ultrasound 05/25/18 08:13 IMPRESSION: SUCCESSFUL THORACENTESIS USING ULTRASOUND GUIDANCE. Chest X-Ray 05/25/18 16:00 IMPRESSION: No pneumothorax. Stable bilateral pleural effusions. Assessment and Plan - Diagnosis (1) Pneumonia Qualifiers: Pneumonia type: due to unspecified organism Laterality: bilateral Lung location: lower lobe of lung Qualified Code(s): J18.1 - Lobar pneumonia, unspecified organism Is this a current diagnosis for this admission?: Yes Plan: 05/26/18 18:58 Multiple factors to consider. Bilateral pneumonia is typically not aspiration but it could be. There is no history of aspiration. There is potential for underlying malignancy. Community-acquired is still the most likely and this would more likely be a Streptococcus than anything. Her white blood cell count is normal. We will continue her azithromycin for 1 more day. 05/26/18 19:02 (2) Pleural effusion, right Is this a current diagnosis for this admission?: Yes Plan: 05/26/18 19:01 This could be a parapneumonic effusion. Based on the chemistries of both the fluid and serum it is right on the margin for transudate versus exudate. We w ill repeat a chest x-ray tomorrow in follow-up. Continue daily furosemide and monitor electrolytes. 05/26/18 19:02 (3) Chronic kidney disease Qualifiers: Chronic kidney disease stage: stage 3 (moderate) Qualified Code(s): N18.3 - Chronic kidney disease, stage 3 (moderate) Is this a current diagnosis for this admission?: Yes Plan: 05/26/18 19:02 Reviewing serum chemistries not only from this admission but several years prior her serum creatinine now appears to be better than it has been. I believe she is back to her baseline. Continue to monitor renal function and adjust medications accordingly. (4) Anemia Qualifiers: Anemia type: iron deficiency Iron deficiency anemia type: unspecified iron deficiency Qualified Code(s): D50.9 - Iron deficiency anemia, unspecified Is this a current diagnosis for this admission?: Yes Plan: 05/26/18 19:03 Hemoglobin is stable. We will continue to monitor. She is on an iron supplement for her iron deficiency. Also in his endoscopy note Dr. Samayoa mentioned gastritis on the upper endoscopy. Evidently she had an ulcerated lesion in the hepatic flexure on her last colonoscopy but this appears to have resolved. 05/26/18 19:05 05/26/18 19:06 (5) Protein-calorie malnutrition, moderate Is this a current diagnosis for this admission?: Yes Plan: 05/26/18 19:03 The patient reported a weight loss of approximately 20 pounds over the last 6 months. She is weak. It is difficult to assess changes in subcutaneous fat or muscle mass as this is my first encounter. This could be related to an unde rlying malignancy. Please also see Dr. Samayoa's note. 05/26/18 19:04 (6) Liver mass Is this a current diagnosis for this admission?: Yes Plan: 05/26/18 19:07 Please also see the endoscopy notes and Dr. Samayoa's note. The patient is due for an imaging study as an outpatient. Her numbers are stable. There is no linda blood loss and her hemoglobin today was slightly higher than yesterday. If her numbers are stable consider discharge unless other procedures are indicated per gastroenterology. - Time Time Spent with patient: 15-24 minutes Medications reviewed and adjusted accordingly: Yes Anticipated discharge: Home Within: within 48 hours - Plan Summary Plan Summary: Endoscopy iron deficiency anemia weight loss 20 pounds in 6 months
[2018-05-27 04:42] LABS: HEMATOCRIT 23.2 % (36.0-47.0); HEMOGLOBIN 8.1 g/dL (12.0-15.5); MEAN CORPUSCULAR HEMOGLOBIN 31.1 pg (27.0-33.4); MEAN CORPUSCULAR HGB CONC 34.8 g/dL (32.0-36.0); MEAN CORPUSCULAR VOLUME 89 fl (80-97); PLATELET COUNT 301 10^3/uL (150-450); RED BLOOD COUNT 2.59 10^6/uL (3.72-5.28); RED CELL DISTRIBUTION WIDTH 13.4 % (11.5-14.0); WHITE BLOOD COUNT 4.9 10^3/uL (4.0-10.5)
[2018-05-27 05:04] LABS: ALBUMIN 2.6 g/dL (3.5-5.0); ANION GAP 16 (5-19); BLOOD UREA NITROGEN 16 mg/dL (7-20); CALCIUM 8.9 mg/dL (8.4-10.2); CARBON DIOXIDE 16 mmol/L (22-30); CHLORIDE 103 mmol/L (98-107); POTASSIUM 3.7 mmol/L (3.6-5.0); SODIUM 135.1 mmol/L (137-145)
[2018-05-27 05:09] LABS: GLUCOSE 67 mg/dL (75-110)
[2018-05-27] MEDS: LEVOTHYROXINE SODIUM 0.05 MG TABLET PO SCH (05:26)
--- NOTE | 2018-05-27 08:13 | RADIOLOGY REPORT (SQ) ---
EXAM DESCRIPTION: CHEST SINGLE VIEW COMPLETED DATE/TIME: 05/27/2018 7:53 am REASON FOR STUDY: Pneumonia with pleural effusions COMPARISON: 05/25/2018 EXAM PARAMETERS: NUMBER OF VIEWS: One view. TECHNIQUE: Single frontal radiographic view of the chest acquired. RADIATION DOSE: NA LIMITATIONS: None. FINDINGS: LUNGS AND PLEURA: There are persistent bilateral pleural effusions and basilar airspace di sease. Findings have progressed slightly on the right when compared to prior exam. No pneumothorax. MEDIASTINUM AND HILAR STRUCTURES: No masses. Contour normal. HEART AND VASCULAR STRUCTURES: Heart size is stable. No overt failure. BONES: No acute findings. HARDWARE: None in the chest. OTHER: No other significant finding. IMPRESSION: Persistent small effusions. Slight increase in right basilar airspace disease since bell or study. No change in the findings in the left base. TECHNICAL DOCUMENTATION: JOB ID: [id number] [employer]- All Rights Reserved Reading location - IP/workstation name: [email or web address]
--- NOTE | 2018-05-27 08:13 | PDOC PROGRESS REPORT ---
Subjective Progress Note for:: 05/27/18 Subjective:: patient tolerated the procedure well patient colon ulcer/ area of inflammation has healed incidental finding of a colon polyp that was removed pathology is pending however patient does have duodenitis gastritis noted and biopsies are pending patient does have submucosal gastric polyp in the cardia region the of the stomach may need EUS Reason For Visit: PNEUMONIA,PLEURAL EFFUSION Physical Exam Vital Signs: Temp Pulse Resp BP Pulse Ox 98.9 F 90 19 140/65 H 93 05/27/18 03:40 05/27/18 03:40 05/27/18 03:40 05/27/18 03:40 05/27/18 03:40 Intake & Output 05/26/18 05/27/18 05/28/18 06:59 06:59 06:59 Intake Total 1018 825 Balance 1018 825 Weight 51.3 kg 51.2 kg General appearance: PRESENT: no acute distress, well-developed, well-nourished Head exam: PRESENT: atraumatic, normocephalic Eye exam: PRESENT: EOMI, PERRLA. ABSENT: nystagmus, periorbital swelling Mouth exam: PRESENT: moist, neck supple Throat exam: ABSENT: tonsillar exudate, tonsillogmegaly Neck exam: ABSENT: meningismus, tenderness, thyromegaly Respiratory exam: PRESENT: symmetrical, unlabored. ABSENT: tachypnea, wheezes Cardiovascular exam: PRESENT: +S1, +S2 GI/Abdominal exam: PRESENT: soft. ABSENT: rebound, rigid, tenderness Extremities exam: ABSENT: joint swelling Musculoskeletal exam: PRESENT: full ROM Neurological exam: PRESENT: oriented to time, oriented to situation, CN II-XII grossly intact Focused psych exam: ABSENT: restlessness Skin exam: PRESENT: normal color. ABSENT: mottled, pallor, urticaria, vesicles Results Laboratory Results: 05/27/18 03:56 05/27/18 03:56 05/25/18 05/25/18 05/25/18 13:46 13:46 13:46 WBC RBC Hgb Hct MCV MCH MCHC RDW Plt Count Sodium Potassium Chloride Carbon Dioxide Anion Gap BUN Creatinine Est GFR ( Amer) Est GFR (Non-Af Amer) Glucose Calcium Phosphorus Albumin Fluid pH 7.5 Fluid Glucose Fluid Total Protein 2.8 Fluid LDH Fluid Amylase 9 05/25/18 05/25/18 05/27/18 13:46 13:46 03:56 WBC 4.9 RBC 2.59 L Hgb 8.1 L Hct 23.2 L MCV 89 MCH 31.1 MCHC 34.8 RDW 13.4 Plt Count 301 Sodium Potassium Chloride Carbon Dioxide Anion Gap BUN Creatinine Est GFR ( Amer) Est GFR (Non-Af Amer) Glucose Calcium Phosphorus Albumin Fluid pH Fluid Glucose 122 Fluid Total Protein Fluid LDH 76 Fluid Amylase 05/27/18 03:56 WBC RBC Hgb Hct MCV MCH MCHC RDW Plt Count Sodium 135.1 L Potassium 3.7 Chloride 103 Carbon Dioxide 16 L Anion Gap 16 BUN 16 Creatinine 1.20 Est GFR ( Amer) 52 L Est GFR (Non-Af Amer) 43 L Glucose 67 L Calcium 8.9 Phosphorus 4.0 Albumin 2.6 L Fluid pH Fluid Glucose Fluid Total Protein Fluid LDH Fluid Amylase Impressions: Chest CT 05/23/18 21:03 IMPRESSION: Bilateral pleural effusions. Bilateral lower lobe consolidation/atelectasis, suspicious for pneumonia. Cardiomegaly with probable pulmonary vascular congestion. Possible interstitial edema. Hazy upper lobe infiltrate. Diagnostic possibilities include pulmonary edema and pneumonia. Low density liver lesions. Metastatic disease cannot be excluded. Nonemergent ultrasound might prove helpful for further evaluation. TECHNICAL DOCUMENTATION: Quality ID # 436: Final reports with documentation of one or more dose reduction techniques (e.g., Automated exposure control, adjustment of the mA and/or kV according to patient size, use of iterative reconstruction technique) copyright 2011 [employer]- All Rights Reserved Thoracentesis Ultrasound 05/25/18 08:13 IMPRESSION: SUCCESSFUL THORACENTESIS USING ULTRASOUND GUIDANCE. Assessment & Plan - Diagnosis (1) Weight loss Is this a current diagnosis for this admission?: Yes Plan: etiology is being worked up wait on biopsies (3) Liver mass Is this a current diagnosis for this admission?: Yes Plan: not from a colonic source wait on gastric biopsies - Time Time Spent with patient: 15-24 minutes
[2018-05-27] MEDS: OMEGA-3 ACID ETHYL ESTERS 1 GM CAPSULE PO SCH (09:36)
[2018-05-27] MEDS: FUROSEMIDE 20 MG TABLET PO SCH (09:36)
[2018-05-27] MEDS: FENOFIBRATE NANOCRYSTALLIZED 48 MG TABLET PO SCH (09:37)
[2018-05-27] MEDS: FERROUS SULFATE 325 MG TABLET PO SCH (09:37)
[2018-05-27] MEDS: MULTIVITAMIN TABLET PO SCH (09:37)
[2018-05-27] MEDS: HYDRALAZINE HCL 50 MG TABLET PO SCH (09:37)
[2018-05-27] MEDS: DOCUSATE SODIUM 100 MG CAPSULE PO SCH (09:41)
--- NOTE | 2018-05-27 14:55 | PDOC CONSULTATION ---
Consultation Consult Date: 05/25/18 Attending physician:: MAYA LARA Consult reason:: Large right pleural effusion History of Present Illness Admission Date/PCP: 05/24/18 14:57 ELENA SILVA MD History of Present Illness: MATEO FRYE is a 83 year old female presented for increasing weakness and fatigue found to have a large right pleural effusion as well as a new hepatic mass. Some dips in exertion but shortness of breath at rest she really has a cough she denies hemoptysis her PPD was negative dates unknown she has had no history of chronic lung disease as a child or adolescent. She admits to exposure to passive smoke as a child but not so much as an adult she herself has never smoked she denies any significant occupational exposure to potential respiratory toxins she has no pets no recent travel she denies angina-like chest pain sleeps on 2 pillows no PND rare nocturnal cough and occasional edema she is unaware of any snoring she denies restless sleep nocturia 1-2 times per night she denies unrestful sleep or excessive daytime somnolence Past Medical History Cardiac Medical History: Reports: Hypertension - ON MEDS TOPROL Denies: Coronary Artery Disease, Myocardial Infarction Pulmonary Medical History: Reports: Pneumonia - Hx of, 1984 Denies: Asthma, Bronchitis, Chronic Obstructive Pulmonary Disease (COPD) EENT Medical History: Reports: Cataracts Neurological Medical History: Denies: Seizures Endocrine Medical History: Reports: Hypothyroidism GI Medical History: Denies: Hepatitis, Hiatal Hernia, Peptic Ulcer Disease Musculoskeltal Medical History: Comment Only: Arthritis - hips Skin Medical History: Denies: Eczema, Psoriasis Psychiatric Medical History: Denies: Alcohol Dependency, Tobacco Dependency Traumatic Medical History: Denies: Traumatic Brain Injury Hematology: Reports: Anemia - BORDERLINE NO MEDS Denies: Sickle Cell Disease Past Surgical History Past Surgical History: Denies: Amputation, Mastectomy, Pacemaker Social History Information Source: Patient, [facility] Records Lives with: Family Smoking Status: Never Smoker Passive smoke exposure as: Both Frequency of Alcohol Use: None Hx Recreational Drug Use: No Drugs: None Hx Prescription Drug Abuse: No Do you have pets?: No Have you had any respiratory illnesses as a child?: No Have you been exposed to any sick contacts recently?: No Have you had any recent respiratory illnesses?: No Have you travelled outside of [place] in the past 12 months?: No - Advance Directive Resuscitation Status: Full Code Family History Family History: Malignancy - Father with pancreatic cancer Parental Family History Reviewed: Yes Children Family History Reviewed: Yes Sibling(s) Family History Reviewed.: Yes Medication/Allergy Home Medications: Allopurinol [Zyloprim 100 mg Tablet] 100 mg PO DAILY 12/12/17 Cholecalciferol (Vitamin D3) [Vitamin D3] 400 unit PO DAILY 12/12/17 Clonidine [Catapres-Tts 1 (0.1 mg/24 Hr) Transderm Patch] 1 patch TD .QWEEKLY 12/12/17 Fenofibrate Nanocrystallized [Fenofibrate] 48 mg PO DAILY 12/12/17 Levothyroxine Sodium 50 mcg PO DAILY 12/12/17 [place]-3 Fatty Acids/Fish Oil [Fish Oil 1,000 mg Capsule] 1 each PO BID 12/12/17 Furosemide [Lasix 20 mg Tablet] 20 mg PO DAILY 05/24/18 Hydralazine HCl [Apresoline 50 mg Tablet] 50 mg PO Q12 05/24/18 Iron 65 65 mg PO DAILY 05/24/18 Allergies/Adverse Reactions: No Known Allergies Allergy (Verified 05/23/18 17:26) Review of Systems Constitutional: PRESENT: anorexia, fatigue, weakness, weight loss. ABSENT: chills, fever(s), night sweats Eyes: ABSENT: visual disturbances Ears: ABSENT: hearing changes Nose, Mouth, and Throat: ABSENT: mouth pain, sore throat Cardiovascular: PRESENT: dyspnea on exertion, orthropnea. ABSENT: chest pain, edema, palpitations Respiratory: ABSENT: hemoptysis Gastrointestinal: ABSENT: abdominal pain, bloating, coffee ground emesis, hematemesis, hematochezia, melena, nausea Genitourinary: ABSENT: dysuria, hematuria Musculoskeletal: ABSENT: deformity, joint swelling Integumentary: ABSENT: pruritus, rash Neurological: ABSENT: abnormal gait, abnormal movements, abnormal speech, confusion, focal weakness, frequent falls, lack of coordination, memory loss, numbness Psychiatric: ABSENT: hallucinations, homidical ideation, suicidal ideation Endocrine: ABSENT: cold intolerance, heat intolerance, polydipsia, polyuria Hematologic/Lymphatic: ABSENT: easy bruising, lymphadenopathy Allergic/Immunologic: ABSENT: seasonal rhinorrhea Physical Exam Vital Signs: Temp Pulse Resp BP Pulse Ox 99.3 F 77 16 143/64 H 92 05/25/18 08:04 05/25/18 08:04 05/25/18 08:04 05/25/18 08:04 05/25/18 08:04 Intake & Output 05/24/18 05/25/18 05/26/18 06:59 06:59 06:59 Intake Total 1869 1525 50 Balance 1869 1525 50 Weight 51 kg 52 kg General appearance: PRESENT: no acute distress, cooperative, disheveled, thin Head exam: PRESENT: atraumatic, normocephalic Eye exam: PRESENT: conjunctiva pale, EOMI. ABSENT: nystagmus, periorbital swelling, scleral icterus Mouth exam: PRESENT: dry mucosa, neck supple, tongue midline Neck exam: ABSENT: carotid bruit, full ROM, JVD, lymphadenopathy, meningismus, tenderness, thyromegaly, tracheal deviation, tracheostomy, other Respiratory exam: PRESENT: decreased breath sounds, prolonged expiratory phas, rales, rhonchi, unlabored, other - Egophony right lateral and posterior chest wall. ABSENT: retraction, stridor, symmetrical Cardiovascular exam: PRESENT: RRR, +S1, +S2 Pulses: PRESENT: normal radial pulses GI/Abdominal exam: PRESENT: soft. ABSENT: tenderness Extremities exam: ABSENT: calf tenderness, clubbing, joint swelling Musculoskeletal exam: ABSENT: deformity, dislocation Neurological exam: PRESENT: alert, awake Psychiatric exam: PRESENT: appropriate affect Skin exam: PRESENT: dry, warm Results Laboratory Results: 05/25/18 04:50 05/25/18 04:50 05/25/18 05/25/18 04:50 04:50 WBC 5.4 RBC 2.59 L Hgb 8.1 L Hct 23.2 L MCV 90 MCH 31.2 MCHC 34.8 RDW 13.1 Plt Count 302 Sodium 134.5 L Potassium 4.0 Chloride 104 Carbon Dioxide 19 L Anion Gap 12 BUN 22 H Creatinine 1.37 H Est GFR ( Amer) 45 L Est GFR (Non-Af Amer) 37 L Glucose 107 Calcium 9.0 Total Bilirubin 0.4 AST 19 ALT 18 Alkaline Phosphatase 94 Total Protein 5.0 L Albumin 2.8 L Impressions: Chest X-Ray 05/23/18 18:01 IMPRESSION: Bilateral pleural effusions and diffuse patchy airspace opacities suggests multi lobar pneumonia. Recommend consideration of atypical organisms in treatment planning. Chest CT 05/23/18 21:03 IMPRESSION: Bilateral pleural effusions. Bilateral lower lobe consolidation/atelectasis, suspicious for pneumonia. Cardiomegaly with probable pulmonary vascular congestion. Possible interstitial edema. Hazy upper lobe infiltrate. Diagnostic possibilities include pulmonary edema and pneumonia. Low density liver lesions. Metastatic disease cannot be excluded. Nonemergent ultrasound might prove helpful for further evaluation. TECHNICAL DOCUMENTATION: Quality ID # 436: Final reports with documentation of one or more dose reduction techniques (e.g., Automated exposure control, adjustment of the mA and/or kV according to patient size, use of iterative reconstruction technique) copyright 2011 [email or web address]- All Rights Reserved Assessment & Plan - Diagnosis (1) Liver mass Is this a current diagnosis for this admission?: Yes Plan: Consider CT-guided needle biopsy (2) Pleural effusion, right Is this a current diagnosis for this admission?: Yes Plan: Thoracentesis soon as possible to make to check for malignant cells (3) Protein-calorie malnutrition, moderate Is this a current diagnosis for this admission?: Yes Plan: Nutritional consult
--- NOTE | 2018-05-27 14:58 | PDOC PROGRESS REPORT ---
Subjective Progress Note for:: 05/27/18 Subjective:: Lethargic without complaints Reason For Visit: PNEUMONIA,PLEURAL EFFUSION Physical Exam Vital Signs: Temp Pulse Resp BP Pulse Ox 98.2 F 88 15 151/52 H 92 05/27/18 11:51 05/27/18 11:51 05/27/18 11:51 05/27/18 11:51 05/27/18 11:51 Intake & Output 05/26/18 05/27/18 05/28/18 06:59 06:59 06:59 Intake Total 1018 825 Balance 1018 825 Weight 51.3 kg 51.2 kg General appearance: PRESENT: no acute distress, cooperative, thin, well- developed, well-nourished Head exam: PRESENT: atraumatic, normocephalic Eye exam: PRESENT: conjunctiva pale, EOMI. ABSENT: nystagmus Mouth exam: PRESENT: dry mucosa, neck supple, tongue midline Neck exam: ABSENT: carotid bruit, full ROM, JVD, lymphadenopathy, meningismus, tenderness, thyromegaly, tracheal deviation, tracheostomy, other Respiratory exam: PRESENT: decreased breath sounds, prolonged expiratory phas, rhonchi, unlabored. ABSENT: rales, retraction, stridor Cardiovascular exam: PRESENT: RRR, +S1, +S2 Pulses: PRESENT: normal radial pulses GI/Abdominal exam: PRESENT: soft Extremities exam: ABSENT: calf tenderness, clubbing, joint swelling, pedal edema Musculoskeletal exam: ABSENT: deformity, dislocation Neurological exam: PRESENT: altered, awake Skin exam: PRESENT: dry, warm Results Laboratory Results: 05/27/18 03:56 05/27/18 03:56 05/25/18 05/27/18 05/27/18 13:46 03:56 03:56 WBC 4.9 RBC 2.59 L Hgb 8.1 L Hct 23.2 L MCV 89 MCH 31.1 MCHC 34.8 RDW 13.4 Plt Count 301 Sodium 135.1 L Potassium 3.7 Chloride 103 Carbon Dioxide 16 L Anion Gap 16 BUN 16 Creatinine 1.20 Est GFR ( Amer) 52 L Est GFR (Non-Af Amer) 43 L Glucose 67 L Calcium 8.9 Phosphorus 4.0 Albumin 2.6 L Fluid pH 7.5 05/24/18 18:15 Sputum Gram Stain - Final 05/24/18 18:15 Sputum Sputum Culture - Final NORMAL RODOLFO 05/25/18 13:46 Pleural Fluid AFB Smear Concentration - Final 05/25/18 13:46 Pleural Fluid Acid Fast Bacilli Smear - Final Impressions: Chest CT 05/23/18 21:03 IMPRESSION: Bilateral pleural effusions. Bilateral lower lobe consolidation/atelectasis, suspicious for pneumonia. Cardiomegaly with probable pulmonary vascular congestion. Possible interstitial edema. Hazy upper lobe infiltrate. Diagnostic possibilities include pulmonary edema and pneumonia. Low density liver lesions. Metastatic disease cannot be excluded. Nonemergent ultrasound might prove helpful for further evaluation. TECHNICAL DOCUMENTATION: Quality ID # 436: Final reports with documentation of one or more dose reduction techniques (e.g., Automated exposure control, adjustment of the mA and/or kV according to patient size, use of iterative reconstruction technique) copyright 2011 [employer]- All Rights Reserved Thoracentesis Ultrasound 05/25/18 08:13 IMPRESSION: SUCCESSFUL THORACENTESIS USING ULTRASOUND GUIDANCE. Chest X-Ray 05/27/18 06:00 IMPRESSION: Persistent small effusions. Slight increase in right basilar airspace disease since prior study. No change in the findings in the left base. Assessment & Plan - Diagnosis (1) Liver mass Is this a current diagnosis for this admission?: Yes Plan: Consider CT-guided needle biopsy (2) Pleural effusion, right Is this a current diagnosis for this admission?: Yes Plan: Cells noted on differential pleural fluid reviewed with pathologist apparently these are just mesothelial cells (3) Protein-calorie malnutrition, moderate Is this a current diagnosis for this admission?: Yes Plan: Nutritional consult
[2018-05-27 15:36] VITALS: BP 126/52
--- NOTE | 2018-05-28 06:51 | PDOC DISCHARGE SUMMARY ---
General - Admit/Disc Date/PCP Admission Date/Primary Care Provider: 05/24/18 14:57 ELENA SILVA MD Discharge Date: 05/27/18 - Discharge Diagnosis (1) Pneumonia Is this a current diagnosis for this admission?: Yes Summary: Patient will complete antibiotic therapy as an outpatient. It is difficult to know if the pneumonia because the pleural effusion or if the pleural effusion precipitated atelectasis with subsequent consolidation. A thoracentesis was performed. There is no evidence of overwhelming infection. It is more likely that the patient has been developing a pleural effusion but acutely developed the consolidation. She received IV antibiotic therapy throughout her hospitalization. (2) Pleural effusion, right Is this a current diagnosis for this admission?: Yes Summary: The exact etiology of the pleural effusion is unclear. There could be a cardiac component although she does not have a significant history of coronary disease. There is a new murmur that she had not been diagnosed with before. There is also anemia and hypoalbuminemia from her many months of poor appetite and weight loss. There was no evidence of malignancy in the. The patient will continue antibiotic therapy. She will discharge on an increased dose of furosemide. I did also add a small dose of Aldactone for p otential cardiac failure component. I am going to have the patient follow-up with cardiology to see if there is a cardiac component. (3) Chronic kidney disease Is this a current diagnosis for this admission?: Yes Summary: The patient is not diabetic and the chronic kidney disease may likely be due to hypertensive nephropathy. With fluids the patient appears to be back to her baseline. She will continue to follow-up with nephrology. (4) Anemia Is this a current diagnosis for this admission?: Yes Summary: The patient's hemoglobin initially was 10 but dropped into the 8-9 range. This was likely due to some hemodilution. The patient did have an endoscopy that showed gastritis. There was no evidence of an obvious source of bleeding. Laboratory studies revealed a marked iron deficiency. Continue iron supplement. There could be a GI component of chronic low-grade blood loss but there was no site of active bleeding on endoscopy. This is likely multifactorial. Clearly iron deficiency is present. She has lost a significant amount of weight with markedly decreased appetite over the last 6 months. If there is an underlying malignancy this will also likely contribute. (5) Protein-calorie malnutrition, moderate Is this a current diagnosis for this admission?: Yes Summary: Patient has had a very poor diet. If the liver lesions are malignant this would explain her overall status. Her poor appetite would contribute to the anemia as well. (6) Liver mass Is this a current diagnosis for this admission?: Yes Summary: The patient is currently in the process of workup for the liver lesion. Malignancy could certainly explain the recent significant weight loss as well as the associated anemia, low albumin and overall poor state of health. She will continue workup as an outpatient. She is scheduled for an MRI tomorrow. I believe she has a follow-up with her physician in [place] once the MRI is c ompleted. (7) Hypertension Is this a current diagnosis for this admission?: Yes Summary: The patient feels very strongly that her "feeling poorly "coincides with the initiation of new antihypertensive medications. There are certainly multiple potential etiologies for her clinical state. With the possibility of a cardiac component to her pleural effusions and the fact that she still makes urine, I increased her furosemide dose. I also added a small dose of Aldactone. I did not make any changes to the clonidine patch but I did decrease the hydralazine in anticipation of the effects of the other medication adjustments. She will following up with cardiology as noted above. - Additional Information Resuscitation Status: Full Code Discharge Diet: Cardiac, Other (Comments) - Foods high in iron. Increased protein. Discharge Activity: Activity As Tolerated, Balance Activity w/Rest, Keep Legs Elevated - Elevate legs when sitting Prescriptions: Azithromycin [Zithromax 250 mg Tablet] 250 mg PO DAILY #5 tablet Cefuroxime Axetil [Ceftin 250 mg Tablet] 1 tab PO BID 7 Days #14 tablet Hydralazine HCl [Apresoline 25 mg Tablet] 25 mg PO BID 14 Days #28 tablet Spironolactone [Aldactone 25 mg Tablet] 25 mg PO DAILY 30 Days #30 tab Home Medications: Allopurinol [Zyloprim 100 mg Tablet] 100 mg PO DAILY 12/12/17 Cholecalciferol (Vitamin D3) [Vitamin D3] 400 unit PO DAILY 12/12/17 Clonidine [Catapres-Tts 1 (0.1 mg/24 Hr) Transderm Patch] 1 patch TD .QWEEKLY 12/12/17 Fenofibrate Nanocrystallized [Fenofibrate] 48 mg PO DAILY 12/12/17 Levothyroxine Sodium 50 mcg PO DAILY 12/12/17 [place]-3 Fatty Acids/Fish Oil [Fish Oil 1,000 mg Capsule] 1 each PO BID 12/12/17 Furosemide [Lasix 20 mg Tablet] 20 mg PO DAILY 05/24/18 Azithromycin [Zithromax 250 mg Tablet] 250 mg PO DAILY #5 tablet 05/27/18 Cefuroxime Axetil [Ceftin 250 mg Tablet] 1 tab PO BID 7 Days #14 tablet 05/27/18 Ferrous Sulfate [Feosol 325 mg Tablet] 325 mg PO DAILY tablet 05/27/18 Guaifenesin [Robitussin Syrup 200 mg/10 ml Ud Cup] 200 mg PO Q4HP PRN udc 05/27/18 Hydralazine HCl [Apresoline 25 mg Tablet] 25 mg PO BID 14 Days #28 tablet 05/27/18 Iron 65 65 mg PO BID #0 05/27/18 Multivitamin [Tab-A-Annmarie (Multiple Vitamin) Tablet] 1 tab PO DAILY tablet 05/27/18 Spironolactone [Aldactone 25 mg Tablet] 25 mg PO DAILY 30 Days #30 tab 05/27/18 History of Present Illness Patient complains of: Shortness of breath History of Present Illness: MATEO FRYE is a 83 year old female with a past medical history of hypertension, chronic kidney disease stage II and recent diagnosis of hepatic mass. In addition to the shortness of breath the patient reports early satiety, fatigue and 25 pound weight loss over 6 months. There is no chest pain, palpitation, nausea or vomiting. Evaluation revealed bilateral pleural effusions with right greater than left. The patient was referred to the hospital service for admission. Hospital Course Hospital Course: The patient had a benign hospital course. Antibiotics seem to be effective for the pneumonia. She underwent a thoracentesis as noted above. Endoscopy did not reveal any active site of bleeding. Other details as above. Physical Exam Vital Signs: Temp Pulse Resp BP Pulse Ox 98.2 F 88 15 151/52 H 92 05/27/18 11:51 05/27/18 11:51 05/27/18 11:51 05/27/18 11:51 05/27/18 11:51 Intake & Output 05/26/18 05/27/18 05/28/18 06:59 06:59 06:59 Intake Total 1018 825 Balance 1018 825 Weight 51.3 kg 51.2 kg General appearance: PRESENT: no acute distress, cooperative, thin Head exam: PRESENT: normocephalic Eye exam: PRESENT: conjunctiva pale. ABSENT: scleral icterus Mouth exam: PRESENT: moist, tongue midline Respiratory exam: PRESENT: clear to auscultation aye - Upper lung [place] bilaterally, decreased breath sounds - At bases, symmetrical, unlabored. ABSENT: rales, rhonchi, wheezes Cardiovascular exam: PRESENT: RRR, +S1, +S2, systolic murmur - 2/6 left sternal border GI/Abdominal exam: PRESENT: normal bowel sounds, soft. ABSENT: distended, tenderness Rectal exam: PRESENT: deferred Extremities exam: PRESENT: pedal edema Neurological exam: PRESENT: alert, awake, oriented to person, oriented to place, oriented to time, oriented to situation, CN II-XII grossly intact Psychiatric exam: PRESENT: flat affect. ABSENT: agitated, anxious Focused psych exam: ABSENT: delusional, restlessness Results Laboratory Results: 05/27/18 03:56 05/27/18 03:56 05/25/18 05/27/18 05/27/18 13:46 03:56 03:56 WBC 4.9 RBC 2.59 L Hgb 8.1 L Hct 23.2 L MCV 89 MCH 31.1 MCHC 34.8 RDW 13.4 Plt Count 301 Sodium 135.1 L Potassium 3.7 Chloride 103 Carbon Dioxide 16 L Anion Gap 16 BUN 16 Creatinine 1.20 Est GFR ( Amer) 52 L Est GFR (Non-Af Amer) 43 L Glucose 67 L Calcium 8.9 Phosphorus 4.0 Albumin 2.6 L Fluid pH 7.5 05/24/18 18:15 Sputum Gram Stain - Final 05/24/18 18:15 Sputum Sputum Culture - Final NORMAL RODOLFO 05/25/18 13:46 Pleural Fluid AFB Smear Concentration - Final 05/25/18 13:46 Pleural Fluid Acid Fast Bacilli Smear - Final Impressions: Chest CT 05/23/18 21:03 IMPRESSION: Bilateral pleural effusions. Bilateral lower lobe consolidation/atelectasis, suspicious for pneumonia. Cardiomegaly with probable pulmonary vascular congestion. Possible interstitial edema. Hazy upper lobe infiltrate. Diagnostic possibilities include pulmonary edema and pneumonia. Low density liver lesions. Metastatic disease cannot be excluded. Nonemergent ultrasound might prove helpful for further evaluation. TECHNICAL DOCUMENTATION: Quality ID # 436: Final reports with documentation of one or more dose reduction techniques (e.g., Automated exposure control, adjustment of the mA and/or kV according to patient size, use of iterative reconstruction technique) copyright 2011 [employer]- All Rights Reserved Thoracentesis Ultrasound 05/25/18 08:13 IMPRESSION: SUCCESSFUL THORACENTESIS USING ULTRASOUND GUIDANCE. Chest X-Ray 05/27/18 06:00 IMPRESSION: Persistent small effusions. Slight increase in right basilar airspace disease since prior study. No change in the findings in the left base. Qualifiers - * PATIENT BEING DISCHARGED WITH ANY OF THE FOLLOWING DIAGNOSIS: No Plan Discharge Plan: Increase furosemide to 40 mg daily times 3 days Continue clonidine patch Decrease hydralazine to 25 mg twice daily then defer to cardiology/nephrology And Spironolactone 25 mg daily Follow-up with cardiology tomorrow Time Spent: Greater than 30 Minutes
[2018-05-30] MEDS ORDERED: CLONIDINE 0.1 MG/24 HR PATCH.TDWK TD SCH (22:00)
== END 2018-05-27 16:30 | disposition home or self-care (01) | DRG 194 ==
LOC: ER 17:25 → INTOOBSV 23:24 → EH 23:24 → 5 05-24 02:00 → OBSVTOIN 05-24 14:57
PROVIDERS: ADMIT Internal Medicine; ATTEND Internal Medicine
PROC: 0W993ZX Drainage of Right Pleural Cavity, Percutaneous Approach, Diagnostic (ICD-10-PCS; 2018-05-25)
PROC: 0DBL8ZX Excision of Transverse Colon, Via Natural or Artificial Opening Endoscopic, Diagnostic (ICD-10-PCS; principal; 2018-05-26 13:30)
PROC: 0DD68ZX Extraction of Stomach, Via Natural or Artificial Opening Endoscopic, Diagnostic (ICD-10-PCS; 2018-05-26 13:30)
DX: J18.1 Lobar pneumonia, unspecified organism (principal); J90 Pleural effusion, not elsewhere classified; E44.0 Moderate protein-calorie malnutrition; K63.5 Polyp of colon; K31.7 Polyp of stomach and duodenum; E86.0 Dehydration; I12.9 Hypertensive chronic kidney disease with stage 1 through stage 4 chronic kidney disease, or unspecified chronic kidney disease; N18.2 Chronic kidney disease, stage 2 (mild); R16.0 Hepatomegaly, not elsewhere classified; D50.9 Iron deficiency anemia, unspecified; Z79.2 Long term (current) use of antibiotics; Z79.899 Other long term (current) drug therapy
CPT/HCPCS: 32555; 36415; 43239; 45385; 71045; 71046; 71250; 80053; 80069; 81001; 82150; 82378; 82607; 82728; 82746; 82945; 82962; 83540; 83550; 83615; 83735; 83986; 84155; 84157; 84443; 85025; 85027; 85045; 85610; 85652; 85730; 86140; 86255; 87015; 87040; 87070; 87075; 87101; 87116; 87205; 87206; 88305; 89050; 96360; 96361; 99285; G0378; J0171; J0456; J0696; J1200; J1610; J1644; J2250; J2310; J2405; J3010; J3490; J7040; J7060; J7120

== ENCOUNTER 2018-05-30 12:45 | Emergency (ER) | payer BC, MEDICARE ==
[2018-05-30] MEDS ORDERED: KETOROLAC TROMETHAMINE INJ/PF 30 MG/1 ML SDV IV ONE (13:12)
--- NOTE | 2018-05-30 13:13 | ER Document Report ---
ED Medical Screen (RME) - General Chief Complaint: Flank Pain Stated Complaint: RIGHT SIDE PAIN Time Seen by Provider: 05/30/18 13:11 Primary Care Provider: ELENA SILVA MD [Primary Care Provider] - Follow up as needed Mode of Arrival: Wheelchair Information source: Patient, Relative TRAVEL OUTSIDE OF THE [place] IN LAST 30 DAYS: No - HPI Patient complains to provider of: R flank/abd pain Onset: Other - pt was recently in hospital here where liver and kidney masses were found. Now pt. with R flank/low bad pain - Related Data Allergies/Adverse Reactions: No Known Allergies Allergy (Verified 05/30/18 12:46) Past Medical History - Past Medical History Cardiac Medical History: Reports: Hx Hypertension - ON MEDS TOPROL Denies: Hx Coronary Artery Disease, Hx Heart Attack Pulmonary Medical History: Reports: Hx Pneumonia - Hx of, 1984 Denies: Hx Asthma, Hx Bronchitis, Hx COPD Neurological Medical History: Denies: Hx Cerebrovascular Accident, Hx Seizures Endocrine Medical History: Reports: Hx Hypothyroidism Renal/ Medical History: Denies: Hx Peritoneal Dialysis GI Medical History: Denies: Hx Hepatitis, Hx Hiatal Hernia, Hx Ulcer Musculoskeltal Medical History: Comment Only Hx Arthritis - hips Skin Medical History: Denies Hx Eczema, Denies Hx Psoriasis Traumatic Medical History: Denies: Hx Traumatic Brain Injury Infectious Medical History: Denies: Hx Hepatitis Past Surgical History: Denies: Hx Mastectomy, Hx Open Heart Surgery, Hx Pacemaker - Immunizations Hx Diphtheria, Pertussis, Tetanus Vaccination: No History of Influenza Vaccine for 12/2016 - 05/2017 Season: Yes Influenza Administration Date for 12/2016 - 05/2017 Season: 05/08/17 Physical Exam - Vital signs Vitals: Temp Pulse Resp BP Pulse Ox 98.2 F 92 15 159/64 H 97 05/30/18 12:58 05/30/18 12:58 05/30/18 12:58 05/30/18 12:58 05/30/18 12:58 Course - Vital Signs Vital signs: Temp Pulse Resp BP Pulse Ox 98.2 F 92 15 159/64 H 97 05/30/18 12:58 05/30/18 12:58 05/30/18 12:58 05/30/18 12:58 05/30/18 12:58 Doctor's Discharge - Discharge Referrals: ELENA SILVA MD [Primary Care Provider] - Follow up as needed
[2018-05-30 14:40] LABS: ABSOLUTE EOSINOPHILS # (AUTO) 0.1 10^3/uL (0.0-0.6); ABSOLUTE LYMPHOCYTES (AUTO) 0.3 10^3/uL (0.5-4.7); ABSOLUTE MONOCYTES (AUTO) 0.3 10^3/uL (0.1-1.4); ABSOLUTE NEUT (AUTO) 5.1 10^3/uL (1.7-8.2); BASOPHILS % (AUTO) 0.7 % (0-2); EOSINOPHILS % (AUTO) 1.2 % (0-6); HEMATOCRIT 28.7 % (36.0-47.0); HEMOGLOBIN 9.7 g/dL (12.0-15.5); LYMPHOCYTES % (AUTO) 5.5 % (13-45); MEAN CORPUSCULAR HEMOGLOBIN 30.7 pg (27.0-33.4); MEAN CORPUSCULAR VOLUME 90 fl (80-97); MONOCYTES % (AUTO) 5.5 % (3-13); PLATELET COUNT 359 10^3/uL (150-450); RED BLOOD COUNT 3.18 10^6/uL (3.72-5.28); RED CELL DISTRIBUTION WIDTH 13.5 % (11.5-14.0); SEGMENTED NEUTROPHILS % (AUTO) 87.1 % (42-78); TOTAL CELLS COUNTED % (AUTO) 100 %; WHITE BLOOD COUNT 5.8 10^3/uL (4.0-10.5)
[2018-05-30] MEDS ORDERED: MORPHINE SULFATE 10 MG/ML INJ IV ONE (14:51)
--- NOTE | 2018-05-30 14:56 | ER Document Report ---
ED General - General Chief Complaint: Flank Pain Stated Complaint: RIGHT SIDE PAIN Time Seen by Provider: 05/30/18 13:11 Primary Care Provider: ELENA SILVA MD [Primary Care Provider] - Follow up as needed Mode of Arrival: Wheelchair Information source: Patient TRAVEL OUTSIDE OF THE [place] IN LAST 30 DAYS: No - HPI Patient complains to provider of: Right side pain Onset: This morning Onset/Duration: Sudden Quality of pain: Fullness, Pressure, Sharp Severity: Moderate Pain Level: 4 Associated symptoms: Hurts to breath Exacerbated by: Deep breathing Relieved by: Denies Similar symptoms previously: Yes Recently seen / treated by doctor: Yes Notes: Patient is an 83-year-old female presenting to the emergency department today complaining of right-sided pain, stating it hurts when she takes a deep breath, she was recently in this hospital with a right-sided pleural effusion and noted to have a mass on her liver, she has a follow-up with Dr. Copeland on Friday, had an MRI on of this past week, Dr. Silva her cookie padder called and sa id there is also a mass on her kidney according to the MRI report, she took some Tylenol at home which gave her no relief of her pain, she denies any cough, no fever, no nausea or vomiting, she does have daily diarrhea, a poor appetite and significant weight loss - Related Data Allergies/Adverse Reactions: No Known Allergies Allergy (Verified 05/30/18 12:46) Past Medical History - General Information source: Patient, Relative - Social History Smoking Status: Never Smoker Chew tobacco use (# tins/day): No Frequency of alcohol use: None Drug Abuse: None Family History: Malignancy - Father with pancreatic cancer Patient has suicidal ideation: No Patient has homicidal ideation: No - Past Medical History Cardiac Medical History: Reports: Hx Hypertension - ON MEDS TOPROL Denies: Hx Coronary Artery Disease, Hx Heart Attack Pulmonary Medical History: Reports: Hx Pneumonia - Hx of, 1984 Denies: Hx Asthma, Hx Bronchitis, Hx COPD Neurological Medical History: Denies: Hx Cerebrovascular Accident, Hx Seizures Endocrine Medical History: Reports: Hx Hypothyroidism Renal/ Medical History: Denies: Hx Peritoneal Dialysis GI Medical History: Denies: Hx Hepatitis, Hx Hiatal Hernia, Hx Ulcer Musculoskeletal Medical History: Comment Only Hx Arthritis - hips Skin Medical History: Denies Hx Eczema, Denies Hx Psoriasis Traumatic Medical History: Denies: Hx Traumatic Brain Injury Infectious Medical History: Denies: Hx Hepatitis Past Surgical History: Denies: Hx Mastectomy, Hx Open Heart Surgery, Hx Pacemak er - Immunizations Hx Diphtheria, Pertussis, Tetanus Vaccination: No Review of Systems - Review of Systems Constitutional: No symptoms reported EENT: No symptoms reported Cardiovascular: No symptoms reported Respiratory: See HPI Gastrointestinal: See HPI Genitourinary: No symptoms reported Female Genitourinary: No symptoms reported Musculoskeletal: No symptoms reported Skin: No symptoms reported Hematologic/Lymphatic: No symptoms reported Neurological/Psychological: No symptoms reported -: Yes All other systems reviewed and negative Physical Exam - Vital signs Vitals: Temp Pulse Resp BP Pulse Ox 98.2 F 92 15 159/64 H 97 05/30/18 12:58 05/30/18 12:58 05/30/18 12:58 05/30/18 12:58 05/30/18 12:58 Interpretation: Normal - General General appearance: Appears well, Alert - HEENT Head: Normocephalic, Atraumatic Eyes: Normal Pupils: PERRL - Respiratory Respiratory status: No respiratory distress Chest status: Tender - Right lower rib cage Breath sounds: Decreased air movement - Right lung base Chest palpation: Normal - Cardiovascular Rhythm: Regular Heart sounds: Normal auscultation Murmur: No - Abdominal Inspection: Normal Distension: No distension Bowel sounds: Normal Tenderness: Tender - Right upper quadrant Organomegaly: No organomegaly - Back Back: Normal, Nontender - Extremities General upper extremity: Normal inspection, Nontender, Normal color, Normal ROM, Normal temperature General lower extremity: Normal inspection, Nontender, Normal color, Normal ROM, Normal temperature, Normal weight bearing. No: Mandy's sign - Neurological Neuro grossly intact: Yes Cognition: Normal Orientation: AAOx4 [place] Coma Scale Eye Opening: Spontaneous [place] Coma Scale Verbal: Oriented [place] Coma Scale Motor: Obeys Commands H[place] Coma Scale Total: 15 Speech: Normal Motor strength normal: LUE, RUE, LLE, RLE Sensory: Normal - Psychological Associated symptoms: Normal affect, Normal mood - Skin Skin Temperature: Warm Skin Moisture: Dry Skin Color: Normal Course - Re-evaluation Re-evalutation: 05/30/18 16:30 Lab and imaging findings discussed with patient and family members at bedside which are relatively unchanged from her previous visit, she has a follow-up appointment with Dr. Copeland, has also been in touch with Dr. Silva who apparently is going to set her up with an oncology follow-up and a urology follow-up, her pain is resolved after receiving just a 2 mg dose of morphine, therefore patient is agreeable to discharge home with pain medication and instructions for follow-up, advised to return if symptoms worsen in any way, patient and family acknowledge understanding and agreement with this plan - Vital Signs Vital signs: Temp Pulse Resp BP Pulse Ox 98.2 F 92 15 159/64 H 97 05/30/18 12:58 05/30/18 12:58 05/30/18 12:58 05/30/18 12:58 05/30/18 12:58 - Laboratory Result Diagrams: 05/30/18 14:20 05/30/18 14:20 Laboratory results interpreted by me: 05/30/18 05/30/18 14:20 14:20 RBC 3.18 L Hgb 9.7 L Hct 28.7 L Seg Neutrophils % 87.1 H Lymphocytes % 5.5 L Absolute Lymphocytes 0.3 L Sodium 135.0 L Creatinine 1.30 H Est GFR ( Amer) 48 L Est GFR (Non-Af Amer) 39 L Calcium 10.4 H Direct Bilirubin 0.5 H Alkaline Phosphatase 139 H Total Protein 5.7 L Albumin 3.3 L - Diagnostic Test Radiology reviewed: Image reviewed, Reports reviewed Discharge - Discharge Clinical Impression: Liver mass, Flank pain Condition: Stable Disposition: HOME, SELF-CARE Instructions: Abdominal Pain ([facility]), Oral Narcotic Medication ([facility]) Additional Instructions: Follow up with your primary care provider and sort line worker in one to 2 days. Return to the emergency room immediately if symptoms worsen or any additional concerns. Prescriptions: Hydrocodone/Acetaminophen [[place] 5-325 mg Tablet] 1 tab PO Q6 #20 tablet Referrals: ELENA SILVA MD [Primary Care Provider] - Follow up as needed
[2018-05-30 14:58] LABS: ALANINE AMINOTRANSFERASE 23 U/L (9-52); ALBUMIN 3.3 g/dL (3.5-5.0); ALKALINE PHOSPHATASE 139 U/L (38-126); ANION GAP 13 (5-19); ASPARTATE AMINO TRANSFERASE 28 U/L (14-36); BILIRUBIN,DIRECT 0.5 mg/dL (0.0-0.4); BILIRUBIN,TOTAL 0.6 mg/dL (0.2-1.3); BLOOD UREA NITROGEN 20 mg/dL (7-20); CALCIUM 10.4 mg/dL (8.4-10.2); CARBON DIOXIDE 23 mmol/L (22-30); CHLORIDE 99 mmol/L (98-107); GLUCOSE 90 mg/dL (75-110); LIPASE 90.1 U/L (23-300); POTASSIUM 4.8 mmol/L (3.6-5.0); TOTAL PROTEIN 5.7 g/dL (6.3-8.2)
--- NOTE | 2018-05-30 15:24 | RADIOLOGY REPORT (SQ) ---
EXAM DESCRIPTION: CHEST 2 VIEWS COMPLETED DATE/TIME: 05/30/2018 3:14 pm REASON FOR STUDY: r side pain COMPARISON: 05/27/2018. 05/23/2018 CT. TECHNIQUE: Frontal and lateral radiographic views of the chest acquired. NUMBER OF VIEWS: Two view. LIMITATIONS: None. FINDINGS: LUNGS AND PLEURA: Bilateral effusions, left greater than right. Basilar areas of subsegme ntal atelectasis. No pneumothorax. MEDIASTINUM AND HILAR STRUCTURES: Stable contours. HEART AND VASCULAR STRUCTURES: Cardiomegaly. BONES: Osteopenic. HARDWARE: None in the chest. OTHER: No other significant finding. IMPRESSION: Bilateral effusions and basilar volume loss, similar to prior. TECHNICAL DOCUMENTATION: JOB ID: [id number] [email or web address]- All Rights Reserved Reading location - IP/workstation name: [email or web address]
--- NOTE | 2018-05-30 15:26 | RADIOLOGY REPORT (SQ) ---
EXAM DESCRIPTION: ABDOMEN 2 VIEWS COMPLETED DATE/TIME: 05/30/2018 3:14 pm REASON FOR STUDY: r side pain COMPARISON: CT 11/17/2017. NUMBER OF VIEWS: Two views. TECHNIQUE: Supine and erect/decubitus radiographic images of the abdomen acquired. LIMITATIONS: None. FINDINGS: FREE AIR: None. No abnormal gas collections. LUNG BASES: See separate dictation. BOWEL GAS PATTERN: Relatively nonspecific but nonobstructive bowel gas pattern with scattered gas pre dominantly in colon. CALCIFICATIONS: Calcifications in the upper abdomen appear to be vascular upon correlation with prior CT. SOFT TISSUES: No gross mass or suggestion of organomegaly. HARDWARE: None in the abdomen. BONES: Osteopenia. Spondylosis and scoliosis. OTHER: No other significant finding. IMPRESSION: NO RADIOGRAPHIC EVIDENCE FOR ACUTE ABDOMINAL DISEASE. TECHNICAL DOCUMENTATION: JOB ID: [id number] [employer]- All Rights Reserved Reading location - IP/workstation name: [email or web address]
[2018-05-30 16:50] VITALS: BP 148/60
== END 2018-05-30 16:48 | disposition home or self-care (01) ==
LOC: ER 12:45
DX: R16.0 Hepatomegaly, not elsewhere classified (principal); R10.9 Unspecified abdominal pain; I10 Essential (primary) hypertension; E03.9 Hypothyroidism, unspecified
CPT/HCPCS: 99284; 96374; 96375; 36415; 83690; 85025; 80053; 74019; 71046; J1885; J2270

== ENCOUNTER 2018-06-15 08:45 | Day surgery (SDC) | payer MEDICARE, BC ==
[2018-06-15 10:01] LABS: HEMATOCRIT 24.2 % (36.0-47.0); HEMOGLOBIN 8.2 g/dL (12.0-15.5); MEAN CORPUSCULAR HEMOGLOBIN 30.7 pg (27.0-33.4); MEAN CORPUSCULAR HGB CONC 33.8 g/dL (32.0-36.0); MEAN CORPUSCULAR VOLUME 91 fl (80-97); PLATELET COUNT 241 10^3/uL (150-450); RED BLOOD COUNT 2.67 10^6/uL (3.72-5.28); RED CELL DISTRIBUTION WIDTH 14.6 % (11.5-14.0); WHITE BLOOD COUNT 5.1 10^3/uL (4.0-10.5)
[2018-06-15 10:10] LABS: INTERNATIONAL RATION (INR) 0.97; PROTHROMBIN TIME 13.4 SEC (11.4-15.4)
[2018-06-15 10:11] LABS: BLOOD UREA NITROGEN 28 mg/dL (7-20); PARTIAL THROMBOPLASTIN TIME 45.8 SEC (23.5-35.8)
[2018-06-15] MEDS ORDERED: FENTANYL CITRATE INJ/PF 100 MCG/2 ML AMPUL ONE (11:04)
[2018-06-15] MEDS ORDERED: MIDAZOLAM 2 MG/2 ML INJ ONE (11:04)
--- NOTE | 2018-06-15 13:20 | RADIOLOGY REPORT (SQ) ---
EXAM DESCRIPTION: CT BIOPSY LIVER; CT NEEDLE PLACEMENT COMPLETED DATE/TIME: 06/15/2018 12:07 pm REASON FOR STUDY: MALIGNANT NEOPPLAM OF RIGHT KIDNEY, OTHER DISEASES OF LIVER; MALIGNANT NEOPPLAM OF RIGHT KIDNEY, OTHER DISEASES OF LIVER, LIVER BIOPSY C64.1 MALIGNANT NEOPLASM OF RIGHT KIDNEY, EXCEP T RENAL PELVI K76.89 OTHER SPECIFIED DISEASES OF LIVER COMPARISON: CT chest 05/23/2018 TECHNIQUE: After obtaining informed consent and explaining the risks and benefits of conscious sedat ion,the patient agreed to the procedure. The patient was brought to the CT suite and was placed supin e on the CT gurney. The patient was prepped and draped in the usual sterile fashion . Axial images w ere obtained for targeting of theright lobe liver mass. An appropriate access site was selected. IV c onscious sedation was administered and physician direction by the registered nurse using 0.5 milligra ms of Versed and 50 micrograms of fentanyl. Physiologic monitoring was provided before, during, and a fter sedation. The total sedation time was 30 minutes. Documentation face to face time, the performing proceduralist, spent monitoring the patient: 10minute s. Noncontrasted CT of the liver was performed to localize an approach for the right lobe liver mass li hayden biopsy. A percutaneous site was marked. Time out was performed. After skin prep and local lidocaine for skin and deep tissue anesthesia, a coaxial biopsy needle sys tem was used to obtain 4 cores of tissue from the right lobe liver. These were submitted to the lab in formalin. Biopsy tract from the 18 gauge needle was embolized with Gel-Foam. No immediate postpr ocedure complications. Total of 5.[address] fluoro was used. 30 CT Fluoroscopic images were obtained and saved to PACS. All CT scanners at this facility use dose modulation, iterative reconstruction, and/or weight based d osing when appropriate to reduce radiation dose to as low as reasonably achievable (ALARA). [facility]: Dose Right [facility]: CareDose [facility]: Dose Right [facility]: Teradose 4D [facility]: [employer] RADIATION DOSE: 47 mGy. LIMITATIONS: None. FINDINGS: CT guided liver biopsy as detailed above. IMPRESSION: CT GUIDED RIGHT LOBE LIVER MASS LIVER BIOPSY PERFORMED ABOVE. PATHOLOGY PENDING. N O IMMEDIATE COMPLICATIONS. IV CONSCIOUS SEDATION COMMENT: Patient medication list reviewed:Yes- Quality ID# [id number]:Eligible professional attests to docu menting in the medical record they obtained, updated, or reviewed the patient's current medications.. Quality ID 145: Final reports for procedures using fluoroscopy that document radiation exposure latricia koko, or exposure time and number of fluorographic images (if radiation exposure indices are not avail able) TECHNICAL DOCUMENTATION: JOB ID: [id number] Quality ID # [id number]: Final reports with documentation of one or more dose reduction techniques (e.g., A utomated exposure control, adjustment of the mA and/or kV according to patient size, use of iterative reconstruction technique) 2010 [employer]- All Rights Reserved Reading location - IP/workstation name: [email or web address]
[2018-06-15 14:22] VITALS: BP 144/67
== END 2018-06-15 14:15 | disposition home or self-care (01) ==
LOC: RAD 08:45
PROVIDERS: ATTEND Internal Medicine
DX: C64.1 Malignant neoplasm of right kidney, except renal pelvis (principal); C78.7 Secondary malignant neoplasm of liver and intrahepatic bile duct; Z88.8 Allergy status to other drugs, medicaments and biological substances; D64.9 Anemia, unspecified; E78.5 Hyperlipidemia, unspecified; N18.4 Chronic kidney disease, stage 4 (severe); Z79.899 Other long term (current) drug therapy
CPT/HCPCS: 36415; 84520; 82565; 85027; 85610; 85730; 88342 ×2; 88341 ×2; 88305 ×2; 88313 ×2; 77012; 47000; J2250; J3010

== ENCOUNTER → 2018-06-30 | Outpatient (CLI) | payer MEDICARE, BC ==
--- NOTE | 2018-07-01 09:27 | RADIOLOGY REPORT (SQ) ---
EXAM DESCRIPTION: PET CT SKULL/THIGH COMPLETED DATE/TIME: 06/30/2018 10:18 pm REASON FOR STUDY: C64.1 MALIGNANT NEOPLASM OF RIGHT KIDNEY, EXCEPT RENAL PELVIS C64.1 MALIGNANT MI[place]HAIL PLASM OF RIGHT KIDNEY, EXCEPT RENAL PELVI Stage IV carcinoma unknown primary COMPARISON: CT-guided liver biopsy 06/15/2018 CT chest 05/23/2018 CT abdomen pelvis 11/17/2017 RADIONUCLIDE AND DOSE: 9.8 mCi mCi F18 FDG The route of agent administration: Intravenous FASTING BLOOD SUGAR: 67 mg/dl CONTRAST TYPE AND DOSE: No CT contrast given. TECHNIQUE: Blood glucose level was verified. Above dose of FDG was injected intravenously. 2-D seg mented attenuation correction images were obtained from the base of the skull to the midthighs. Nonc ontrast CT images were obtained for attenuation correction and fusion with emission images. CT image s were performed without oral or intravenous contrast and are not sensitive for parenchymal lesions. A series of overlapping emission PET images were obtained. Images reviewed and manipulated at [facility] work station by the radiologist. Images stored on PACS. LIMITATIONS: None. FINDINGS: HEAD AND NECK: No areas of abnormal metabolic activity in the soft tissues of the head and neck. CHEST: There is a large right pleural effusion present. Pleural based hypermetabolic masses are seen in the right pleural space between the distal esophagus and descending aorta, 2.6 x 2 cm axial image 90 with SUV 5.9. A smaller nodule is also present in this area 1 x 1 cm axial image 99 with SUV 4.5 . There is mediastinal and retrocrural adenopathy as follows: Right paratracheal node axial image 71, 1.6 x 1.1 cm with SUV of 3 Precarinal node axial image 79, 1.1 x 0.9 cm in size with SUV 1.9 1 cm right hilar lymph node SUV 2.8 1 cm sub- carinal lymph node axial image 87, SUV 4.5 Right retrocrural 9 mm lymph node axial image 106, SUV 5.1 ABDOMEN AND PELVIS: Previously biopsied liver mass is present, about 10 cm in greatest diameter with a metabolically active rind of tissue around its periphery with SUV 6.7. 1 cm demetris hepatis lymph node with SUV 6.7. Bulky and upper abdominal. Caval aortocaval and periaortic lymph nodes with SUV 4.8 to 6. Gastric fundal mass 3 x 2 cm in size axial image 123, with SUV 5.2. The right kidney is diffusely abnormal throughout its upper half, with distortion of the anatomy worr isome for diffuse tumor involvement with SUV 6.6. PROXIMAL LOWER EXTREMITIES: No areas of abnormal metabolic activity in the soft tissues of the lower extremities. BONES: Multiple skeletal metastatic lesions are present with bony sclerosis. The most obvious at the cysts in the right S1 level, less than 1 cm in size with SUV of 5.7. ADDITIONAL CT FINDINGS: No additional significant findings on the noncontrast CT images. OTHER: Liver background activity 1.4 SUV. Blood pool background activity 1.1 SUV IMPRESSION: Diffuse hypermetabolic metastatic disease as above TECHNICAL DOCUMENTATION: JOB ID: [id number] [employer]- All Rights Reserved Reading location - IP/workstation name: [email or web address]
== END ==
LOC: RAD 17:02
PROVIDERS: ATTEND Internal Medicine
DX: C64.1 Malignant neoplasm of right kidney, except renal pelvis (principal)
CPT/HCPCS: 78815; A9552